=== PATIENT | female | born 1970 | race African-American/Black ===

== ENCOUNTER 2016-05-22 08:58 | Emergency (ER) | payer OTHER, MEDICAID ==
[~2016-05-22] VITALS: Ht 160 cm; Wt 115.0 kg
[~2016-05-22 08:58] MED LIST: 1-ME1LIQ PO; ALBU6.7H INH; AMIT50 PO; ATOR40TA49 PO; CHLO.12%30 SSP; CYCL-36 PO; DUONI NEB; HYDR-3533 PO; LISI20 PO; LORTA5 PO; MECL25CH PO; MOBI15TA PO; MONT10TA2 PO; PRED20 PO; REYA150C4 PO; RITO100 PO; TRUVTAB2 PO; VENTAER INH; ZITH250T PO
[2016-05-22 09:00] VITALS: BP 132/80; PULSE 80; RESP 20; O2SAT 99
[2016-05-22 09:10] VITALS: TEMP 97.9
[2016-05-22] MEDS ORDERED: LISI-515 PO (09:18)
[2016-05-22] MEDS ORDERED: ATAZ1TAB PO (09:18)
[2016-05-22] MEDS ORDERED: AMLO2.5T PO (09:18)
[2016-05-22] MEDS ORDERED: ATAZ150 PO (09:18)
[2016-05-22] MEDS ORDERED: ATOR40TA16 PO (09:18)
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
[2016-05-22] MEDS ORDERED: KETOROLAC TROMETHAMINE 60 MG/2 ML (IM) VIAL IM ONE (09:30)
[2016-05-22] MEDS ORDERED: ORPHENADRINE INJ 60 MG/2 ML AMP IM ONE (09:30)
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
[2016-05-22] MEDS ORDERED: ROBA750T PO (10:37)
[2016-05-22] MEDS ORDERED: DICL50TA PO (10:37)
== END 2016-05-22 11:05 | disposition home or self-care (01) ==
LOC: NEPB 08:58
DX: S29.012A Strain of muscle and tendon of back wall of thorax, initial encounter (principal); V43.52XA Car driver injured in collision with other type car in traffic accident, initial encounter
CPT/HCPCS: 71010; 72072; 96372; 99284; J1885; J2360

== ENCOUNTER 2016-08-05 15:59 | Emergency (ER) | payer MEDICAID, OTHER ==
[~2016-08-05] VITALS: Ht 160 cm; Wt 120.0 kg
[~2016-08-05 15:59] MED LIST changes: -1-ME1LIQ PO; -ALBU6.7H INH; -AMIT50 PO; +AMLO2.5T PO; +ATAZ150 PO; +ATAZ1TAB PO; +ATOR40TA16 PO; -ATOR40TA49 PO; -CHLO.12%30 SSP; -CYCL-36 PO; +DICL50TA PO; -DUONI NEB; -HYDR-3533 PO; +LISI-515 PO; -LISI20 PO; -LORTA5 PO; -MECL25CH PO; -MOBI15TA PO; -MONT10TA2 PO; -PRED20 PO; -REYA150C4 PO; -RITO100 PO; +ROBA750T PO; -TRUVTAB2 PO; -VENTAER INH; -ZITH250T PO
[2016-08-05 16:00] VITALS: BP 150/82; PULSE 96; RESP 20; TEMP 98.6; O2SAT 97
--- NOTE | 2016-08-05 18:43 | PD ---
HPI Chief Complaint: Chest Pain Time Seen by Provider: 18:43 Travel History International Travel<30 days: No Contact w/Intl Traveler<30days: No Traveled to known affect area: No History of Present Illness HPI 46-year-old female with history of HIV CD4 count greater than 700, diabetes, hypertension presents to emergency department for evaluation left upper quadrant pain. Patient states pain has been intermittent over the last 4 days. She's been having loose bowel movements. No hematochezia. No nausea or vomiting. No fever or chills. No chest pain or tightness. No difficulty breathing. No other symptoms to report. Of note, patient has brought chicken wings into the emergency department and is eating them when I walked into the room. PFSH Past Medical History Asthma: Yes Cardiovascular Problems: Yes High Cholesterol: Yes Diabetes: Yes Hypertension: Yes Immune Disorder: Yes (AIDS) Neurologic: Yes (PERIPHERAL NEUROPATHY) Immunizations Current: No : 7 Para: 3 Miscarriage: 2 : 2 Past Surgical History Section: Yes Social History Alcohol Use: No Tobacco Use: No Substance Use: No Allergies-Medications (Allergen,Severity, Reaction): Coded Allergies: Sulfa (Verified Allergy, Severe, HIVES, 08/05/16) Reported Meds & Prescriptions Reported Meds & Active Scripts Active Flagyl (Metronidazole) 500 Mg Tab 500 Mg PO TID 10 Days Cipro (Ciprofloxacin HCl) 500 Mg Tab 500 Mg PO BID 10 Days Reported Descovy (Emtricitabine-Tenofovir Alafenamide) 200-25 mg Tab 1 Tab PO DAILY Ferrous Sulfate 325 Mg Tab 325 Mg PO DAILY Metformin (Metformin HCl) 500 Mg Tab 500 Mg PO DAILY With a meal Evotaz (Atazanavir-Cobicistat) 300-150 Mg Tab 1 Tab PO DAILY Amlodipine (Amlodipine Besylate) 2.5 Mg Tab 2.5 Mg PO DAILY Lisinopril 20 Mg Tab 20 Mg PO DAILY Atorvastatin (Atorvastatin Calcium) 40 Mg Tab 40 Mg PO HS Review of Systems Except as stated in HPI: all other systems reviewed are Neg Physical Exam Narrative GENERAL: Obese female patient, in no acute distress. SKIN: Warm and dry. HEAD: Atraumatic. Normocephalic. EYES: Pupils equal and round. No scleral icterus. No injection or drainage. ENT: No nasal bleeding or discharge. Mucous membranes pink and moist. NECK: Trachea midline. No JVD. CARDIOVASCULAR: Elevated rate and rhythm. No murmur appreciated. RESPIRATORY: No accessory muscle use. Clear to auscultation. Breath sounds equal bilaterally. GASTROINTESTINAL: Abdomen soft, nondistended. Significant tenderness to palpation left lower quadrant. No rebound tenderness. No guarding. Hepatic and splenic margins not palpable. MUSCULOSKELETAL: No obvious deformities. No clubbing. No cyanosis. No edema. NEUROLOGICAL: Awake and alert. No obvious cranial nerve deficits. Motor grossly within normal limits. Normal speech. Data Data Last Documented VS Vital Signs Date Time Temp Pulse Resp B/P Pulse Ox O2 Delivery O2 Flow Rate FiO2 08/05/16 19:13 95 18 99 08/05/16 19:13 Room Air 08/05/16 16:00 98.6 150/82 Orders Electrocardiogram (08/05/16 ) Complete Blood Count With Diff (08/05/16 18:42) Comprehensive Metabolic Panel (08/05/16 18:42) Lipase (08/05/16 18:42) Prothrombin Time / Inr (Pt) (08/05/16 18:42) Act Partial Throm Time (Ptt) (08/05/16 18:42) Urinalysis - C+S If Indicated (08/05/16 18:42) Iv Access Insert/Monitor (08/05/16 18:42) Ecg Monitoring (08/05/16 18:42) Oximetry (08/05/16 18:42) Sodium Chloride 0.9% Flush (Ns Flush) (08/05/16 18:45) Magnesium (Mg) (08/05/16 18:42) Chest, Single Ap (08/05/16 18:42) Ct Abd/Pel W Iv Contrast(Rout) (08/05/16 ) Iohexol 350 Inj (Omnipaque 350 Inj) (08/05/16 20:51) Ciprofloxacin (Cipro) (08/05/16 21:45) Metronidazole (Flagyl) (08/05/16 21:45) Labs Laboratory Tests Test 08/05/16 08/05/16 19:10 19:20 White Blood Count 6.1 TH/MM3 Red Blood Count 4.57 MIL/MM3 Hemoglobin 12.1 GM/DL Hematocrit 37.7 % Mean Corpuscular Volume 82.5 FL Mean Corpuscular Hemoglobin 26.6 PG Mean Corpuscular Hemoglobin 32.2 % Concent Red Cell Distribution Width 15.1 % Platelet Count 223 TH/MM3 Mean Platelet Volume 8.6 FL Neutrophils (%) (Auto) 46.9 % Lymphocytes (%) (Auto) 42.9 % Monocytes (%) (Auto) 6.2 % Eosinophils (%) (Auto) 3.4 % Basophils (%) (Auto) 0.6 % Neutrophils # (Auto) 2.9 TH/MM3 Lymphocytes # (Auto) 2.6 TH/MM3 Monocytes # (Auto) 0.4 TH/MM3 Eosinophils # (Auto) 0.2 TH/MM3 Basophils # (Auto) 0.0 TH/MM3 CBC Comment DIFF FINAL Differential Comment Prothrombin Time 10.0 SEC Prothromb Time International 0.9 RATIO Ratio Activated Partial 30.4 SEC Thromboplast Time Sodium Level 137 MEQ/L Potassium Level 3.8 MEQ/L Chloride Level 101 MEQ/L Carbon Dioxide Level 28.4 MEQ/L Anion Gap 8 MEQ/L Blood Urea Nitrogen 10 MG/DL Creatinine 0.96 MG/DL Estimat Glomerular Filtration 75 ML/MIN Rate Random Glucose 173 MG/DL Calcium Level 8.6 MG/DL Magnesium Level 1.8 MG/DL Total Bilirubin 1.5 MG/DL Aspartate Amino Transf 15 U/L (AST/SGOT) Alanine Aminotransferase 32 U/L (ALT/SGPT) Alkaline Phosphatase 114 U/L Total Protein 8.0 GM/DL Albumin 3.5 GM/DL Lipase 171 U/L Urine Color YELLOW Urine Turbidity CLEAR Urine pH 6.0 Urine Specific [place] 1.014 Urine Protein 30 mg/dL Urine Glucose (UA) NEG mg/dL Urine Ketones NEG mg/dL Urine Occult Blood NEG Urine Nitrite NEG Urine Bilirubin NEG Urine Urobilinogen LESS THAN 2.0 MG/DL Urine Leukocyte Esterase NEG Urine RBC LESS THAN 1 /hpf Urine WBC 1 /hpf Urine Squamous Epithelial 3 /hpf Cells Microscopic Urinalysis Comment CULT NOT INDICATED MDM Medical Decision Making Medical Screen Exam Complete: Yes Emergency Medical Condition: Yes Medical Record Reviewed: Yes Differential Diagnosis Gastroenteritis versus colitis versus diverticulitis Narrative Course 46-year-old female presents for his department for evaluation left lower quadrant abdominal pain. Patient does have tenderness to palpation of the left lower quadrant. She otherwise appears well. Vital signs are stable. CBC and CMP are without acute concern. Urinalysis is with 30 per itching area, otherwise unremarkable. Chest x-ray is without acute disease. CT of the abdomen and pelvis shows focal area of pericolic inflammatory changes within the left mid descending colon rising possibility of mild acute diverticulitis. No pericolic abscess is noted. I discussed this with my attending physician Dr. Green who agrees that if the patient appears well with no significant laboratory concern, she can be discharged on oral antibiotics. Patient is given her first dose of Cipro and Flagyl here in the emergency department. I have counseled her on appropriate diet and care. She agrees to return immediately with any acute worsening symptoms. Diagnosis Primary Impression: LLQ abdominal pain Additional Impression: Acute diverticulitis Referrals: Distribution Sales Manager Primary Care Physician Patient Instructions: Diverticulitis (ED), Diverticulitis Diet (ED), General Instructions Additional Instructions: Follow diet as recommended Follow-up with a primary care provider Avoid acidic and abrasive foods Seek gastroenterology evaluation if symptoms persist Return immediately with any acute worsening of symptoms Med/Other Pt SpecificInfo: Prescription(s) given Scripts Metronidazole (Flagyl)500 Mg Oxa301 Mg PO TID 10 Days Ref 0 Prov:Ashley Burrell 08/05/16 Ciprofloxacin (Cipro)500 Mg Apj334 Mg PO BID 10 Days Ref 0 Prov:Ashley Burrell 08/05/16 Disposition: 01 DISCHARGE HOME Condition: Stable Ashley Burrell Aug 05, 2016 18:43
[2016-08-05] MEDS ORDERED: SODIUM CHLORIDE 0.9% FLUSH 10 ML FLUSH IV FLUSH PRN (18:45)
--- NOTE | 2016-08-05 19:06 | RADRPT ---
EXAM DATE/TIME: 08/05/2016 18:56 [facility] COMPARISON: CHEST SINGLE AP, May 22, 2016, 9:58. INDICATIONS : Chest pain. MEDICAL HISTORY : asthma. SURGICAL HISTORY : None. ENCOUNTER: Initial ACUITY: 4 - 6 days PAIN SCORE: 9/10 LOCATION: Left chest FINDINGS: A single view of the chest demonstrates the lungs to be symmetrically aerated without evidence of mas s, infiltrate or effusion. The cardiomediastinal contours are unremarkable. Osseous structures are intact. CONCLUSION: No acute disease. Shayne Dawson MD on August 05, 2016 at 19:05 Board Certified Radiologist. This report was verified electronically.
[2016-08-05 19:13] VITALS: RESP 18; O2SAT 96
[2016-08-05] MEDS ORDERED: FERR325T PO (19:19)
[2016-08-05] MEDS ORDERED: EMTR1TAB4 PO (19:19)
[2016-08-05] MEDS ORDERED: METF500T PO (19:19)
[2016-08-05 19:43] LABS: BLOOD, URINE NEG (NEG); COMMENT (UR) CULT NOT INDICATED; CULTURE IF INDICATED CULT NOT INDICATED; GLUCOSE,URINE NEG (NEG); KETONE, URINE NEG (NEG); NITRITE,URINE NEG (NEG); SQUAMOUS EPITHELIAL CELL URINE 3 /hpf (0-5); URINE COLOR YELLOW (YELLW/STRAW)
[2016-08-05 19:50] LABS: AUTOMATED NEUTROPHIL # 2.9 TH/MM3 (1.8-7.7); BASOPHIL % 0.6 % (0.0-2.0); EOSINOPHIL # 0.2 TH/MM3 (0-0.4); EOSINOPHIL % 3.4 % (0.0-4.0); HEMATOCRIT 37.7 % (35.0-46.0); HEMO FLAGS DIFF FINAL; LYMPH % 42.9 % (9.0-44.0); LYMPHOCYTE # 2.6 TH/MM3 (1.0-4.8); MEAN CELL VOLUME 82.5 FL (80.0-100.0); MEAN CORPUSCULAR HEMOGLOBIN 26.6 PG (27.0-34.0); MEAN CORPUSCULAR HGB CONC 32.2 % (32.0-36.0); MONO % 6.2 % (0.0-8.0); NEUT % 46.9 % (16.0-70.0); PLATELET COUNT 223 TH/MM3 (150-450); RED BLOOD COUNT 4.57 MIL/MM3 (4.00-5.30); RED CELL DISTRIBUTION WIDTH 15.1 % (11.6-17.2); WHITE BLOOD COUNT 6.1 TH/MM3 (4.0-11.0)
[2016-08-05 20:04] LABS: ANION GAP 8 MEQ/L (5-15); AST (GOT) 15 U/L (15-37); BICARBONATE 28.4 MEQ/L (21.0-32.0); BLOOD UREA NITROGEN 10 MG/DL (7-18); CHLORIDE 101 MEQ/L (98-107); GLOMERULAR FILTRATION RATE 75 ML/MIN (>89); MAGNESIUM 1.8 MG/DL (1.5-2.5); POTASSIUM 3.8 MEQ/L (3.5-5.1); SODIUM (NA) 137 MEQ/L (136-145)
[2016-08-05 20:07] LABS: ALKALINE PHOSPHATASE 114 U/L (45-117); ALT (GPT) 32 U/L (10-53); TOTAL BILIRUBIN ADULT 1.5 MG/DL (0.2-1.0)
[2016-08-05 20:22] LABS: APTT (PATIENT) 30.4 SEC (24.3-30.1); INTERNATIONAL NORMALIZED RATIO 0.9 RATIO
[2016-08-05] MEDS ORDERED: IOHEXOL 350 MG/ML 10 ML VIAL (for RAD DIAG) IV ONE (20:51)
--- NOTE | 2016-08-05 21:23 | RADRPT ---
EXAM DATE/TIME: 08/05/2016 20:34 [facility] COMPARISON: No previous studies available for comparison. INDICATIONS : Left sided abdominal pain for 4 days. IV CONTRAST: 98 cc Omnipaque 350 (iohexol) IV ORAL CONTRAST: No oral contrast ingested. RADIATION DOSE: 29.96 CTDIvol (mGy) MEDICAL HISTORY : Cardiovascular disease. Hypertension. Diabetes mellitus type 2.AIDS SURGICAL HISTORY : None. ENCOUNTER: Initial ACUITY: 4 - 6 days PAIN SCALE: 9/10 LOCATION: Left Abdomen/pelvis TECHNIQUE: Volumetric scanning of the abdomen and pelvis was performed. Using automated exposure control and ad justment of the mA and/or kV according to patient size, radiation dose was kept as low as reasonably achievable to obtain optimal diagnostic quality images. FINDINGS: LOWER LUNGS: The visualized lower lungs are clear. LIVER: Homogeneous density without lesion. There is no dilation of the biliary tree. No calcified gallston es. SPLEEN: Normal size without lesion. PANCREAS: Within normal limits. KIDNEYS: Normal in size and shape. There is no mass, stone or hydronephrosis. ADRENAL GLANDS: Within normal limits. VASCULAR: There is no aortic aneurysm. BOWEL/MESENTERY: Focal area of pericolic inflammatory changes are noted within the left mid descending colon raising t he possibility of mild acute diverticulitis. Clinical correlation is recommended. No pericolic absces s is noted. ABDOMINAL WALL: Within normal limits. RETROPERITONEUM: There is no lymphadenopathy. BLADDER: No wall thickening or mass. REPRODUCTIVE: Within normal limits. INGUINAL: There is no lymphadenopathy or hernia. MUSCULOSKELETAL: Within normal limits for patient age. CONCLUSION: Focal area of pericolic inflammatory changes are noted within the left mid descending colon raising the possibility of mild acute diverticulitis. Clinical correlation is recommended. No pericolic abscess is noted. Shayne Dawson MD on August 05, 2016 at 21:18 Board Certified Radiologist. This report was verified electronically.
[2016-08-05] MEDS ORDERED: CIPR-9 PO (21:35)
[2016-08-05] MEDS ORDERED: METR-1 PO (21:35)
[2016-08-05] MEDS ORDERED: CIPROFLOXACIN 500 MG TAB PO ONE (21:45)
[2016-08-05] MEDS ORDERED: metroNIDAZOLE 500 MG TAB PO ONE (21:45)
--- NOTE | 2016-08-06 13:26 | EKG ---
Date Performed: 08/05/2016 Time Performed: 16:22:01 PTAGE: 46 years EKG: Sinus rhythm POSSIBLE RIGHT VENTRICULAR CONDUCTION DELAY BORDERLINE ECG PREVIOUS TRACING : 11/02/2015 10.36 Compared to prior tracing no significant change DOCTOR: Keyon Bridges Interpretating Date/Time 08/06/2016 13:22:51
== END 2016-08-05 21:57 | disposition home or self-care (01) ==
LOC: NED 15:59 → NEPE 21:57
DX: K57.32 Diverticulitis of large intestine without perforation or abscess without bleeding (principal); R10.32 Left lower quadrant pain; R94.31 Abnormal electrocardiogram [ECG] [EKG]; E11.9 Type 2 diabetes mellitus without complications; I10 Essential (primary) hypertension; E78.00 Pure hypercholesterolemia, unspecified; Z21 Asymptomatic human immunodeficiency virus [HIV] infection status; Z79.84 Long term (current) use of oral hypoglycemic drugs; Z87.09 Personal history of other diseases of the respiratory system; Z86.79 Personal history of other diseases of the circulatory system; Z86.69 Personal history of other diseases of the nervous system and sense organs
CPT/HCPCS: 71010; 74177; 80053; 81001; 83690; 83735; 85025; 85610; 85730; 93005; 99284; Q9967

== ENCOUNTER 2016-09-03 15:24 | Observation (INO) | payer OTHER ==
[~2016-09-03] VITALS: Ht 160 cm; Wt 117.7 kg
[2016-09-03] VITALS (7 sets, daily range): BP systolic 124–131; BP diastolic 69–81; PULSE 78–134; RESP 18–28; TEMP 98.6–100.3; O2SAT 95–97
[~2016-09-03 15:24] MED LIST changes: -ATAZ150 PO; +CIPR-9 PO; -DICL50TA PO; +EMTR1TAB4 PO; +FERR325T PO; +METF500T PO; +METR-1 PO; -ROBA750T PO
--- NOTE | 2016-09-03 15:42 | PD ---
HPI Chief Complaint: Cold / Flu Symptoms Time Seen by Provider: 15:38 Travel History International Travel<30 days: No Contact w/Intl Traveler<30days: No Traveled to known affect area: No History of Present Illness HPI 46-year-old female presents the emergency department with 2 day history of increasing wheezing, shortness of breath, cough, and fever. Patient states she is HIV positive and currently treated with negative viral load per her M.D. Patient states she is asthmatic as well and uses a nebulizer at home but she has run out of her albuterol several days ago. Patient states he's been coughing up purulent sputum for the past 24 hours. Patient denies nausea, vomiting, sore throat, headache, ear pain, or chest pain. She is allergic to sulfa. PFSH Past Medical History Asthma: Yes Cardiovascular Problems: Yes High Cholesterol: Yes Diabetes: Yes Patient Takes Glucophage: Yes (metformin) Hypertension: Yes Immune Disorder: Yes (AIDS) Neurologic: Yes (PERIPHERAL NEUROPATHY) Respiratory: Yes Immunizations Current: No ?: Not : 7 Para: 3 Miscarriage: 2 : 2 Past Surgical History Section: Yes Social History Alcohol Use: No Tobacco Use: No Substance Use: No Allergies-Medications (Allergen,Severity, Reaction): Coded Allergies: Sulfa (Verified Allergy, Severe, HIVES, 08/05/16) Reported Meds & Prescriptions Reported Meds & Active Scripts Active Prednisone (48) 10 mg tab Dose Pack (Prednisone) 10 Mg Dspk 10 Mg PO DIRECTED Albuterol Neb (Albuterol Sulfate) 2.5 Mg/0.5 Ml Neb 2.5 Mg NEB QID NEB Note: The Albuterol Sulfate Inhalation Solution is concentrated and must be diluted. Read complete instructions carefully before using. Azithromycin 500 Mg Tab 500 Mg PO DAILY Flagyl (Metronidazole) 500 Mg Tab 500 Mg PO TID 10 Days Cipro (Ciprofloxacin HCl) 500 Mg Tab 500 Mg PO BID 10 Days Reported Descovy (Emtricitabine-Tenofovir Alafenamide) 200-25 mg Tab 1 Tab PO DAILY Ferrous Sulfate 325 Mg Tab 325 Mg PO DAILY Metformin (Metformin HCl) 500 Mg Tab 500 Mg PO DAILY With a meal Evotaz (Atazanavir-Cobicistat) 300-150 Mg Tab 1 Tab PO DAILY Amlodipine (Amlodipine Besylate) 2.5 Mg Tab 2.5 Mg PO DAILY Lisinopril 20 Mg Tab 20 Mg PO DAILY Atorvastatin (Atorvastatin Calcium) 40 Mg Tab 40 Mg PO HS Review of Systems Except as stated in HPI: all other systems reviewed are Neg General / Constitutional: Positive: Fever, Chills Eyes: No: Visual changes HENT: Positive: Rhinitis, Rhinorrhea, Congestion, No: Headaches, Neck Stiffness, Neck Pain, Gingival Bleeding, Dental Difficulties, Ear Discharge, Earache Cardiovascular: No: Chest Pain or Discomfort Respiratory: Positive: Cough, Shortness of Breath, Wheezing, No: Sneezing, Orthopnea, Hemoptysis, Stridor, Night Sweats, Pleuritic Pain, Other Gastrointestinal: No: Nausea, Vomiting, Diarrhea, Abdominal Pain Genitourinary: No: Dysuria Musculoskeletal: No: Pain Skin: No Rash Neurologic: No: Weakness Psychiatric: No: Depression Endocrine: No: Polydipsia Hematologic/Lymphatic: No: Easy Bruising Physical Exam Narrative GENERAL: Patient is in moderate respiratory distress. She has audible wheezing. She can speak in short sentences. SKIN: Warm and dry. Normal color. Normal turgor. No diaphoresis. HEAD: Atraumatic. Normocephalic. EYES: Pupils equal and round. No scleral icterus. No injection or drainage. ENT: No nasal bleeding or discharge. Mucous membranes pink and moist. TMs are clear bilaterally. Airway is patent. Pharynx appears unremarkable. No sinus tenderness to palpation. No postnasal drip. NECK: Trachea midline. No JVD. Supple nontender. CARDIOVASCULAR: Regular rate and rhythm. RESPIRATORY: Mild to moderate accessory muscle use. Moderate diffuse wheezing throughout to auscultation. Breath sounds equal bilaterally. GASTROINTESTINAL: Abdomen soft, non-tender, nondistended. Hepatic and splenic margins not palpable. MUSCULOSKELETAL: Extremities without clubbing, cyanosis, or edema. No obvious deformities. NEUROLOGICAL: Awake and alert. No obvious cranial nerve deficits. Motor grossly within normal limits. Five out of 5 muscle strength in the arms and legs. Normal speech. PSYCHIATRIC: Appropriate mood and affect; insight and judgment normal. Data Data Last Documented VS Vital Signs Date Time Temp Pulse Resp B/P Pulse Ox O2 Delivery O2 Flow Rate FiO2 09/03/16 15:27 100.3 134 28 131/81 95 Room Air Orders Basic Metabolic Panel (Bmp) (09/03/16 15:35) Comprehensive Metabolic Panel (09/03/16 15:35) Chest, Single Ap (09/03/16 15:35) Ecg Monitoring (09/03/16 15:35) Iv Access Insert/Monitor (09/03/16 15:35) Oximetry (09/03/16 15:35) Oxygen Administration (09/03/16 15:35) Methylprednisolone So Succ Inj (Solumedr (09/03/16 15:45) Albuterol-Ipratropium Neb (Duoneb Neb) (09/03/16 15:45) Sodium Chloride 0.9% Flush (Ns Flush) (09/03/16 15:45) Lactic Acid (09/03/16 15:35) Blood Culture (09/03/16 15:35) Influenzae A/B Antigen (09/03/16 15:37) Complete Blood Count With Diff (09/03/16 16:41) Azithromycin (Zithromax) (09/03/16 16:45) Albuterol-Ipratropium Neb (Duoneb Neb) (09/03/16 17:45) Oseltamivir (Tamiflu) (09/03/16 18:15) Labs Laboratory Tests Test 09/03/16 15:35 White Blood Count 5.7 TH/MM3 Red Blood Count 5.04 MIL/MM3 Hemoglobin 13.8 GM/DL Hematocrit 41.3 % Mean Corpuscular Volume 82.1 FL Mean Corpuscular Hemoglobin 27.4 PG Mean Corpuscular Hemoglobin 33.4 % Concent Red Cell Distribution Width 14.6 % Platelet Count 246 TH/MM3 Mean Platelet Volume 9.2 FL Neutrophils (%) (Auto) 39.3 % Lymphocytes (%) (Auto) 41.3 % Monocytes (%) (Auto) 11.6 % Eosinophils (%) (Auto) 7.3 % Basophils (%) (Auto) 0.5 % Neutrophils # (Auto) 2.3 TH/MM3 Lymphocytes # (Auto) 2.4 TH/MM3 Monocytes # (Auto) 0.7 TH/MM3 Eosinophils # (Auto) 0.4 TH/MM3 Basophils # (Auto) 0.0 TH/MM3 CBC Comment DIFF FINAL Differential Comment Sodium Level 138 MEQ/L Potassium Level 4.1 MEQ/L Chloride Level 101 MEQ/L Carbon Dioxide Level 28.4 MEQ/L Anion Gap 9 MEQ/L Blood Urea Nitrogen 8 MG/DL Creatinine 1.00 MG/DL Estimat Glomerular Filtration 72 ML/MIN Rate Random Glucose 115 MG/DL Lactic Acid Level 1.4 mmol/L Calcium Level 9.6 MG/DL Total Bilirubin 1.6 MG/DL Aspartate Amino Transf 26 U/L (AST/SGOT) Alanine Aminotransferase 40 U/L (ALT/SGPT) Alkaline Phosphatase 118 U/L Total Protein 8.1 GM/DL Albumin 3.5 GM/DL [facility] Medical Decision Making Medical Screen Exam Complete: Yes Emergency Medical Condition: Yes Medical Record Reviewed: Yes Differential Diagnosis Influenza. Bronchitis. Pneumonia. Wheezing. Asthma with acute exacerbation. History of HIV. Narrative Course Patient is in mild respiratory distress. Labs ordered including CBC, lactic acid, blood cultures 2. Chest x-ray is ordered. IV access is obtained patient is given 125 mg Solu-Medrol IV as well as duo nebs one every 15 minutes 3. Chest x-ray shows no acute process per radiologist. CBC is unremarkable CMP also unremarkable with a lactic acid of 1.4. Influenza is positive for influenza A. Patient is reassessed and continues to have tachycardia of 120. O2 sat is 93% on room air. Repeat DuoNeb is ordered. Patient discussed with , who recommends observation overnight due to the patient's vital signs and HIV history. Patient is given Tamiflu 75 mg by mouth. Diagnosis Primary Impression: Influenza A Additional Impressions: Asthma with acute exacerbation in adult HIV disease Tachycardia Admitting Information Admitting Physician Requests: Observation Patient Instructions: General Instructions Condition: Stable Jhoan Recio Sep 03, 2016 15:42 Jhoan Recio Sep 03, 2016 15:42
[2016-09-03] MEDS: RESP: ALBUTEROL 2.5 MG/IPRATROPIUM 0.5 MG NEB (SCH) INH (15:45)
[2016-09-03] MEDS ORDERED: SODIUM CHLORIDE 0.9% FLUSH 10 ML FLUSH IVF PRN (15:45)
[2016-09-03] MEDS ORDERED: methylPREDNISolone SOD SUCC 125 MG/2 ML VIAL IVP ONE (15:45)
--- NOTE | 2016-09-03 16:28 | RADRPT ---
EXAM DATE/TIME: 09/03/2016 15:55 [facility] COMPARISON: CHEST SINGLE AP, August 05, 2016, 18:56. INDICATIONS : Chest pain and shortness of breath. MEDICAL HISTORY : Asthma. Cardiovascular disease. Hypertension. Diabetes mellitus type 2. SURGICAL HISTORY : None. ENCOUNTER: Initial ACUITY: 1 week PAIN SCORE: 7/10 LOCATION: Bilateral chest FINDINGS: A single view of the chest demonstrates the lungs to be symmetrically aerated without evidence of mas s, infiltrate or effusion. The cardiomediastinal contours are unremarkable. Osseous structures are intact. CONCLUSION: No acute disease. Davis Mchugh MD on September 03, 2016 at 16:26 Board Certified Radiologist. This report was verified electronically.
[2016-09-03 16:32] LABS: ALKALINE PHOSPHATASE 118 U/L (45-117); TOTAL BILIRUBIN ADULT 1.6 MG/DL (0.2-1.0)
[2016-09-03 16:38] LABS: ALT (GPT) 40 U/L (10-53); ANION GAP 9 MEQ/L (5-15); AST (GOT) 26 U/L (15-37); BICARBONATE 28.4 MEQ/L (21.0-32.0); BLOOD UREA NITROGEN 8 MG/DL (7-18); CHLORIDE 101 MEQ/L (98-107); GLOMERULAR FILTRATION RATE 72 ML/MIN (>89); POTASSIUM 4.1 MEQ/L (3.5-5.1); SODIUM (NA) 138 MEQ/L (136-145)
[2016-09-03 16:52] LABS: AUTOMATED NEUTROPHIL # 2.3 TH/MM3 (1.8-7.7); BASOPHIL % 0.5 % (0.0-2.0); EOSINOPHIL # 0.4 TH/MM3 (0-0.4); EOSINOPHIL % 7.3 % (0.0-4.0); HEMATOCRIT 41.3 % (35.0-46.0); HEMO FLAGS DIFF FINAL; LYMPH % 41.3 % (9.0-44.0); LYMPHOCYTE # 2.4 TH/MM3 (1.0-4.8); MEAN CELL VOLUME 82.1 FL (80.0-100.0); MEAN CORPUSCULAR HEMOGLOBIN 27.4 PG (27.0-34.0); MEAN CORPUSCULAR HGB CONC 33.4 % (32.0-36.0); MONO % 11.6 % (0.0-8.0); NEUT % 39.3 % (16.0-70.0); PLATELET COUNT 246 TH/MM3 (150-450); RED BLOOD COUNT 5.04 MIL/MM3 (4.00-5.30); RED CELL DISTRIBUTION WIDTH 14.6 % (11.6-17.2); WHITE BLOOD COUNT 5.7 TH/MM3 (4.0-11.0)
[2016-09-03] MEDS: AZITHROMYCIN 250 MG TAB PO SCH (16:53)
[2016-09-03] MEDS ORDERED: PRED10PA2 PO (17:44)
[2016-09-03] MEDS ORDERED: ALBU.5I NEB (17:44)
[2016-09-03] MEDS ORDERED: AZIT500T2 PO (17:44)
[2016-09-03] MEDS ORDERED: RESP: ALBUTEROL 2.5 MG/IPRATROPIUM 0.5 MG NEB (SCH) NEB ONE (17:45)
[2016-09-03] MEDS ORDERED: OSELTAMIVIR PHOSPHATE 75 MG CAP PO ONE (18:15)
[2016-09-03] MEDS ORDERED: RESP: ALBUTEROL 2.5 MG/IPRATROPIUM 0.5 MG NEB (PRN) NEB (18:30)
[2016-09-03] MEDS ORDERED: NALOXONE HCL 0.4 MG/ML AMP IV PRN (18:30)
[2016-09-03] MEDS ORDERED: SODIUM CHLORIDE 0.9% FLUSH 10 ML FLUSH IV FLUSH PRN (18:30)
--- NOTE | 2016-09-03 18:43 | HHI.HP ---
[facility] Mello Helton MD Admission Diagnosis asthma exacerbation/influenza/hypoxia Diagnoses: Chief Complaint: SOB Travel History International Travel<30 Days: No Contact w/Intl Traveler <30 Da: No Traveled to Known Affected Are: No Sepsis Criteria SIRS Criteria (2 or more): Heart rate over 90, RR > 20 or PaCO2 < 32 Sepsis Criteria (SIRS+source): Infect source susp/known Criteria Outcome: Meets SIRS criteria, Meets sepsis criteria History of Present Illness Ms. Ascencio is a 46-year-old female with a known history of asthma, HIV positive, diabetes, hypertension and peripheral neuropathy who presented to emergency department with increasing shortness of breath, cough, fever, and associated wheezing. States that about 2 days ago she started to have fevers, chills, fatigue, malaise with increasing shortness of breath and cough. Reports small amount of phlegm yellowish in color that she is expectorating. Overall not feeling well, generalized pain. Denies chest pain, palpitations, headaches, dizziness. Denies n/v/d. Denies dysuria, abdominal pain and cramping, hematuria , hematochezia, hemoptysis. Review of Systems Except as stated in HPI: all other systems reviewed are Neg Past Family Social History Past Medical History Asthma HTN HIV positive Diabetes HLD Diverticulitis Past Surgical History Reported Medications Reported Meds & Active Scripts Active Flagyl (Metronidazole) 500 Mg Tab 500 Mg PO TID 10 Days Cipro (Ciprofloxacin HCl) 500 Mg Tab 500 Mg PO BID 10 Days Reported Descovy (Emtricitabine-Tenofovir Alafenamide) 200-25 mg Tab 1 Tab PO DAILY Ferrous Sulfate 325 Mg Tab 325 Mg PO DAILY Metformin (Metformin HCl) 500 Mg Tab 500 Mg PO DAILY With a meal Evotaz (Atazanavir-Cobicistat) 300-150 Mg Tab 1 Tab PO DAILY Amlodipine (Amlodipine Besylate) 2.5 Mg Tab 2.5 Mg PO DAILY Lisinopril 20 Mg Tab 20 Mg PO DAILY Atorvastatin (Atorvastatin Calcium) 40 Mg Tab 40 Mg PO HS Allergies: Coded Allergies: Sulfa (Verified Allergy, Severe, HIVES, 09/03/16) Active Ordered Medications Current Medications Medications (Trade) Dose Ordered Sig/Mackenzie Route Start Time Stop Time Status Last Admin (NS Flush) 2 ml UNSCH PRN IVF 09/03/16 15:45 (Zithromax) 500 mg DAILY PO 09/03/16 16:45 09/03/16 16:53 (Norvasc) 2.5 mg DAILY PO 09/04/16 09:00 (Lipitor) 40 mg HS PO 09/03/16 21:00 UNV (Ferrous Sulfate) 325 mg DAILY PO 09/04/16 09:00 UNV (Prinivil) 20 mg DAILY PO 09/04/16 09:00 UNV (Flagyl) 500 mg TID PO 09/04/16 09:00 UNV Non-Formulary Medication 1 tab DAILY PO 09/04/16 09:00 UNV Non-Formulary Medication 1 tab 1 tab DAILY PO 09/04/16 09:00 UNV (NS 1000 ml Inj) 1,000 ml @ 100 mls/hr Q10H IV 09/03/16 18:17 (NS Flush) 2 ml UNSCH PRN IV FLUSH 09/03/16 18:30 UNV (NS Flush) 2 ml BID IV FLUSH 09/03/16 21:00 UNV (Tylenol) 650 mg Q4H PRN PO 09/03/16 18:30 (Heparin Inj) 5,000 units Q8H SQ 09/03/16 18:30 UNV (Narcan Inj) 0.4 mg UNSCH PRN IV 09/03/16 18:30 UNV (SoluMEDROL INJ) 40 mg Q8HR IV PUSH 09/03/16 22:00 09/04/16 09:00 UNV (Pill Splitter) 1 ea UNSCH PRN OTHER 09/03/16 18:45 Family History Both sides of the family had diabetes, cancer and hypertension Social History Denies alcohol use Denies tobacco use Denies illicit drug use Physical Exam Vital Signs Vital Signs Date Time Temp Pulse Resp B/P Pulse Ox O2 Delivery O2 Flow Rate FiO2 09/03/16 15:27 100.3 134 28 131/81 95 Room Air Physical Exam GENERAL: This is a obese, well-developed patient, short of breath when talking and exertion. SKIN: No rashes, ecchymoses or lesions. Cool and dry. HEAD: Atraumatic. Normocephalic. No temporal or scalp tenderness. EYES: Pupils equal round and reactive. No scleral icterus. No injection or drainage. ENT: Nose without bleeding. Throat without erythema. Uvula midline. Airway patent. NECK: Trachea midline. No JVD or lymphadenopathy. CARDIOVASCULAR: Tachycardia rate and rhythm without murmurs, gallops, or rubs. RESPIRATORY: Wheezing bilaterally GASTROINTESTINAL: Abdomen soft, non-tender, nondistended. Bowel sounds active 4 MUSCULOSKELETAL: Extremities without clubbing, cyanosis, trace edema edema. NEUROLOGICAL: Awake and alert. Oriented to self, place, time. Motor and sensory grossly within normal limits. Normal speech. Laboratory Laboratory Tests Test 09/03/16 15:35 White Blood Count 5.7 Red Blood Count 5.04 Hemoglobin 13.8 Hematocrit 41.3 Mean Corpuscular Volume 82.1 Mean Corpuscular Hemoglobin 27.4 Mean Corpuscular Hemoglobin 33.4 Concent Red Cell Distribution Width 14.6 Platelet Count 246 Mean Platelet Volume 9.2 Neutrophils (%) (Auto) 39.3 Lymphocytes (%) (Auto) 41.3 Monocytes (%) (Auto) 11.6 Eosinophils (%) (Auto) 7.3 Basophils (%) (Auto) 0.5 Neutrophils # (Auto) 2.3 Lymphocytes # (Auto) 2.4 Monocytes # (Auto) 0.7 Eosinophils # (Auto) 0.4 Basophils # (Auto) 0.0 CBC Comment DIFF FINAL Differential Comment Sodium Level 138 Potassium Level 4.1 Chloride Level 101 Carbon Dioxide Level 28.4 Anion Gap 9 Blood Urea Nitrogen 8 Creatinine 1.00 Estimat Glomerular Filtration 72 Rate Random Glucose 115 Lactic Acid Level 1.4 Calcium Level 9.6 Total Bilirubin 1.6 Aspartate Amino Transf 26 (AST/SGOT) Alanine Aminotransferase 40 (ALT/SGPT) Alkaline Phosphatase 118 Total Protein 8.1 Albumin 3.5 Date/Time Procedure Status Source Growth 09/03/16 16:55 Influenza Types A,B Antigen (FAITH) - Final Complete Nasal Washing Positive For Flu A Antigen 09/03/16 15:40 Aerobic Blood Culture Received Blood Peripheral Pending 09/03/16 15:40 Anaerobic Blood Culture Received Blood Peripheral Pending Result Diagram: 09/03/16 1535 09/03/16 1535 Assessment and Plan Problem List: (1) Influenza A ICD Code: J10.1 Status: Acute (2) HIV disease ICD Code: B20 Status: Acute (3) Asthma with acute exacerbation in adult ICD Code: J45.901 Status: Acute (4) Tachycardia ICD Code: R00.0 Status: Acute (5) Acute diverticulitis ICD Code: K57.92 Status: Acute Assessment and Plan Ms. Ascencio is a 46-year-old female with a known history of asthma, HIV positive, diabetes, hypertension and peripheral neuropathy who presented to emergency department with increasing shortness of breath, cough, fever, and associated wheezing. Sepsis likely secondary to influenza SIRS - tachycardia, RR 28 Asthma with acute exacerbation - Chest x-ray without acute disease - Tamiflu 75mg BID - Duonebs scheduled, PRN - Solumedrol 40 mg every 8 hours - Azithromycin 500 mg daily - Repeat labs tomorrow, IVF for hydration - Monitor respiratory status HIV positive - Continue home HIV meds Diabetes mellitus: 1800 ADA diet. Accu-Chek before meals at bedtime. Hypertension: Continue lisinopril, Norvasc Dyslipidemia: Continue Lipitor. DVT prophylaxis heparin Written by Rohit Dejesus, acting as scribe for Dr. Pereira on 09/03/16 at 18:41. Code Status Full code Discussed Condition With Patient, nursing, ED attending Rohit Rock Sep 03, 2016 18:42 Kristian Pereira MD Sep 04, 2016 09:27
[2016-09-03] MEDS ORDERED: PILL SPLITTER OTHER PRN (18:45)
[2016-09-03] MEDS: HEPARIN SODIUM - SQ 10,000 UNITS/ML VIAL SQ SCH (19:12)
[2016-09-03] MEDS: SODIUM CHLOR 0.9% 1000 ML INJ 1,000 ML IV SCH ×2 (19:12→23:05)
[2016-09-03] MEDS: ACETAMINOPHEN 325 MG TAB PO PRN (19:13)
[2016-09-03] MEDS: RESP: ALBUTEROL 2.5 MG/IPRATROPIUM 0.5 MG NEB (SCH) NEB (19:29)
[2016-09-03] MEDS: ATORVASTATIN 40 MG TAB PO SCH (20:07)
[2016-09-03] MEDS: SODIUM CHLORIDE 0.9% FLUSH 10 ML FLUSH IV FLUSH SCH (21:00)
[2016-09-03] MEDS: OSELTAMIVIR PHOSPHATE 75 MG CAP PO SCH (21:00)
[2016-09-03] MEDS: methylPREDNISolone SOD SUCC 40 MG/1 ML VIAL IV PUSH SCH (23:03)
[2016-09-04] VITALS (8 sets, daily range): BP systolic 121–173; BP diastolic 77–91; PULSE 93–112; RESP 18–20; TEMP 98.1–98.9; O2SAT 95–97
[2016-09-04] MEDS ORDERED: DEXTROSE 50% IN WATER 50 ML VIAL(D50) IV PUSH PRN
[2016-09-04] MEDS ORDERED: GLUCAGON 1 MG/ML VIAL OTHER PRN
[2016-09-04] MEDS: HEPARIN SODIUM - SQ 10,000 UNITS/ML VIAL SQ SCH ×3 (02:00→17:51)
[2016-09-04 05:56] LABS: AUTOMATED NEUTROPHIL # 3.5 TH/MM3 (1.8-7.7); BASOPHIL % 0.2 % (0.0-2.0); EOSINOPHIL % 0.1 % (0.0-4.0); HEMATOCRIT 39.3 % (35.0-46.0); HEMO FLAGS DIFF FINAL; LYMPH % 21.4 % (9.0-44.0); MEAN CELL VOLUME 83.1 FL (80.0-100.0); MEAN CORPUSCULAR HGB CONC 32.5 % (32.0-36.0); MONO % 2.3 % (0.0-8.0); PLATELET COUNT 197 TH/MM3 (150-450); RED BLOOD COUNT 4.74 MIL/MM3 (4.00-5.30); RED CELL DISTRIBUTION WIDTH 14.4 % (11.6-17.2); WHITE BLOOD COUNT 4.7 TH/MM3 (4.0-11.0)
[2016-09-04] MEDS: methylPREDNISolone SOD SUCC 40 MG/1 ML VIAL IV PUSH SCH ×3 (06:00→21:40)
[2016-09-04 06:08] LABS: POTASSIUM 4.3 MEQ/L (3.5-5.1)
[2016-09-04] MEDS: INSULIN ASPART SUPPLEMENTAL SCALE SQ SCH ×5 (06:26→21:00)
[2016-09-04] MEDS: RESP: ALBUTEROL 2.5 MG/IPRATROPIUM 0.5 MG NEB (SCH) NEB ×4 (08:02→20:00)
[2016-09-04] MEDS: SODIUM CHLORIDE 0.9% FLUSH 10 ML FLUSH IV FLUSH SCH ×2 (08:32→21:40)
[2016-09-04] MEDS: FERROUS SULFATE 325 MG (65 MG ELEMENTAL IRON) TAB PO SCH (08:32)
[2016-09-04] MEDS: AZITHROMYCIN 250 MG TAB PO SCH (08:32)
[2016-09-04] MEDS: OSELTAMIVIR PHOSPHATE 75 MG CAP PO SCH ×2 (08:32→21:39)
[2016-09-04] MEDS: amLODIPine BESYLATE 5 MG TAB PO SCH (08:35)
[2016-09-04] MEDS: LISINOPRIL 20 MG TAB PO SCH (08:36)
[2016-09-04] MEDS ORDERED: LOSA50TA PO (08:38)
[2016-09-04] MEDS ORDERED: metroNIDAZOLE 500 MG TAB PO SCH (09:00)
[2016-09-04] MEDS ORDERED: EMTRICITABINE TENOFOVIR ALAFENAMIDE PO SCH (09:00)
[2016-09-04] MEDS ORDERED: PNEUMOCOCCAL POLYVALENT INJ 25 MCG/0.5 ML SYR IM ONE (09:00)
[2016-09-04] MEDS ORDERED: INFLUENZA VIRUS VACCINE (QUADRIVALENT) 0.5 ML SYR IM ONE (09:00)
[2016-09-04] MEDS ORDERED: [UNRECOGNIZED DRUG - OTHER] PO SCH (09:00)
--- NOTE | 2016-09-04 11:59 | HHI.PR ---
Subjective Remarks Feeling slightly better but she still getting short of breath and tachycardic when she walk with wheezing Blood sugar is high we'll upgrade sliding scale, and monitor, will place on basal insulin tonight needed Objective Vitals Vital Signs Date Time Temp Pulse Resp B/P Pulse Ox O2 Delivery O2 Flow Rate FiO2 09/04/16 08:15 93 09/04/16 08:10 95 21 09/04/16 07:39 98.9 93 18 121/77 97 09/04/16 04:57 98.2 98 20 128/ 97 09/03/16 23:26 78 09/03/16 22:20 98.6 109 20 131/69 96 09/03/16 20:12 96 Nasal Cannula 2 09/03/16 20:11 120 18 124/75 96 Nasal Cannula 2 09/03/16 20:08 18 09/03/16 19:28 97 Nasal Cannula 2.00 09/03/16 19:15 96 Nasal Cannula 2 09/03/16 19:14 96 Nasal Cannula 2 09/03/16 15:27 100.3 134 28 131/81 95 Room Air I/O 09/03/16 09/03/16 09/03/16 09/04/16 09/04/16 09/04/16 07:00 15:00 23:00 07:00 15:00 23:00 Intake Total 200 ml Balance 200 ml Intake Oral 200 ml Result Diagram: 09/04/16 0524 09/04/16 0524 Objective Remarks GENERAL: This is a obese, well-developed patient, short of breath when talking and exertion. SKIN: No rashes, ecchymoses or lesions. Cool and dry. HEAD: Atraumatic. Normocephalic. No temporal or scalp tenderness. EYES: Pupils equal round and reactive. No scleral icterus. No injection or drainage. ENT: Nose without bleeding. Throat without erythema. Uvula midline. Airway patent. NECK: Trachea midline. No JVD or lymphadenopathy. CARDIOVASCULAR: Tachycardia rate and rhythm without murmurs, gallops, or rubs. RESPIRATORY: Wheezing bilaterally GASTROINTESTINAL: Abdomen soft, non-tender, nondistended. Bowel sounds active 4 MUSCULOSKELETAL: Extremities without clubbing, cyanosis, trace edema edema. NEUROLOGICAL: Awake and alert. Oriented to self, place, time. Motor and sensory grossly within normal limits. Normal speech. A/P Problem List: (1) Influenza A ICD Code: J10.1 Status: Acute (2) HIV disease ICD Code: B20 Status: Acute (3) Asthma with acute exacerbation in adult ICD Code: J45.901 Status: Acute (4) Tachycardia ICD Code: R00.0 Status: Acute (5) Acute diverticulitis ICD Code: K57.92 Status: Acute Assessment and Plan Ms. Ascencio is a 46-year-old female with a known history of asthma, HIV positive, diabetes, hypertension and peripheral neuropathy who presented to emergency department with increasing shortness of breath, cough, fever, and associated wheezing. Sepsis likely secondary to influenza SIRS - tachycardia, RR 28 Asthma with acute exacerbation - Chest x-ray without acute disease - Tamiflu 75mg BID - Duonebs scheduled, PRN - Solumedrol 40 mg every 8 hours - Azithromycin 500 mg daily - Repeat labs tomorrow, IVF for hydration - Monitor respiratory status HIV positive - Continue home HIV meds Diabetes mellitus uncontrolled: 1800 ADA diet. Accu-Chek before meals at bedtime. Insulin sliding scale will increase to high level, start basal insulin tonight if needed Hypertension: Continue lisinopril, Norvasc Dyslipidemia: Continue Lipitor. DVT prophylaxis heparin Kristian Pereira MD Sep 04, 2016 11:59
[2016-09-04] MEDS: CALCIUM CARBONATE 500 MG CHEWABLE TAB PO PRN ×2 (13:23→21:52)
[2016-09-04] MEDS: SODIUM CHLOR 0.9% 1000 ML INJ 1,000 ML IV SCH (13:24)
[2016-09-04] MEDS: ATORVASTATIN 40 MG TAB PO SCH (21:39)
[2016-09-04] MEDS: ACETAMINOPHEN 325 MG TAB PO PRN (21:53)
[2016-09-05] MEDS: SODIUM CHLOR 0.9% 1000 ML INJ 1,000 ML IV SCH ×2 (00:17→10:17)
[2016-09-05 00:33] VITALS: BP 139/80; PULSE 99; RESP 20; TEMP 96; O2SAT 100
[2016-09-05] MEDS: HEPARIN SODIUM - SQ 10,000 UNITS/ML VIAL SQ SCH ×2 (01:07→09:44)
[2016-09-05 05:16] VITALS: BP 126/81; PULSE 72; RESP 20; TEMP 97.8; O2SAT 99
[2016-09-05] MEDS: methylPREDNISolone SOD SUCC 40 MG/1 ML VIAL IV PUSH SCH (05:21)
[2016-09-05] MEDS: INSULIN ASPART SUPPLEMENTAL SCALE SQ SCH (06:32)
[2016-09-05 08:35] VITALS: BP 154/84; PULSE 85; RESP 17; TEMP 98.3; O2SAT 94
[2016-09-05] MEDS: RESP: ALBUTEROL 2.5 MG/IPRATROPIUM 0.5 MG NEB (SCH) NEB ×2 (08:36→11:48)
[2016-09-05 08:37] VITALS: O2SAT 96
[2016-09-05] MEDS: amLODIPine BESYLATE 5 MG TAB PO SCH (09:00)
[2016-09-05] MEDS: LISINOPRIL 20 MG TAB PO SCH (09:00)
[2016-09-05] MEDS: OSELTAMIVIR PHOSPHATE 75 MG CAP PO SCH (09:00)
[2016-09-05] MEDS: FERROUS SULFATE 325 MG (65 MG ELEMENTAL IRON) TAB PO SCH (09:00)
[2016-09-05] MEDS: AZITHROMYCIN 250 MG TAB PO SCH (09:00)
[2016-09-05] MEDS: SODIUM CHLORIDE 0.9% FLUSH 10 ML FLUSH IV FLUSH SCH (09:00)
[2016-09-05] MEDS ORDERED: OSEL75 PO (11:33)
[2016-09-05] MEDS ORDERED: AZIT250T3 PO (11:33)
[2016-09-05] MEDS ORDERED: PRED5PAK PO (11:33)
[2016-09-05] MEDS ORDERED: ADVA250A INH (12:14)
[2016-09-05] MEDS ORDERED: NEBULIZER1 MI1 (12:22)
--- NOTE | 2016-09-05 14:30 | HHI.PR ---
Subjective Remarks Patient feels better and breathing better off oxygen, despite still wheezing, no fever or chills or chest tightness I discussed with her about asthma , she tells me she use albuterol nebulizer 2- 3 times a day and she gets asthma during the night about twice a week which is consistent with moderate to severe persistent asthma Patient is only on albuterol inhaler and nebulizer, I will discharge her on tapered prednisone dose, I will add Advair (mother dose inhaled steroid with L JESSICA ), and explained to the patient that she needs to follow up with the senior technical manager to titrate her asthma regimen Objective Vitals Vital Signs Date Time Temp Pulse Resp B/P Pulse Ox O2 Delivery O2 Flow Rate FiO2 09/05/16 08:37 96 21 09/05/16 08:35 98.3 85 17 154/84 94 09/05/16 08:00 97 Room Air 09/05/16 05:16 97.8 72 20 126/81 99 09/05/16 00:33 96.0 99 20 139/80 100 09/04/16 20:15 Room Air 21 09/04/16 20:00 98.1 105 20 137/85 95 09/04/16 18:30 98.3 106 18 143/91 95 09/04/16 17:51 151/80 09/04/16 16:48 98.8 112 18 173/89 97 I/O 09/04/16 09/04/16 09/04/16 09/05/16 09/05/16 09/05/16 07:00 15:00 23:00 07:00 15:00 23:00 Intake Total 200 ml 645 ml 1762 ml 726 ml Balance 200 ml 645 ml 1762 ml 726 ml Intake Oral 200 ml 1440 ml IV Total 645 ml 322 ml 726 ml # Voids 1 2 # Bowel Movements 1 0 Result Diagram: 09/04/1652309/04/16523 Objective Remarks GENERAL: This is a obese, well-developed patient, short of breath when talking and exertion. SKIN: No rashes, ecchymoses or lesions. Cool and dry. HEAD: Atraumatic. Normocephalic. No temporal or scalp tenderness. EYES: Pupils equal round and reactive. No scleral icterus. No injection or drainage. ENT: Nose without bleeding. Throat without erythema. Uvula midline. Airway patent. NECK: Trachea midline. No JVD or lymphadenopathy. CARDIOVASCULAR: Tachycardia rate and rhythm without murmurs, gallops, or rubs. RESPIRATORY: Wheezing bilaterally GASTROINTESTINAL: Abdomen soft, non-tender, nondistended. Bowel sounds active 4 MUSCULOSKELETAL: Extremities without clubbing, cyanosis, trace edema edema. NEUROLOGICAL: Awake and alert. Oriented to self, place, time. Motor and sensory grossly within normal limits. Normal speech. A/P Problem List: (1) Influenza A ICD Code: J10.1 Status: Acute (2) HIV disease ICD Code: B20 Status: Acute (3) Asthma with acute exacerbation in adult ICD Code: J45.901 Status: Acute (4) Tachycardia ICD Code: R00.0 Status: Acute (5) Acute diverticulitis ICD Code: K57.92 Status: Acute Assessment and Plan Ms. Ascencio is a 46-year-old female with a known history of asthma, HIV positive, diabetes, hypertension and peripheral neuropathy who presented to emergency department with increasing shortness of breath, cough, fever, and associated wheezing. Sepsis likely secondary to influenza SIRS - tachycardia, RR 28 Asthma with acute exacerbation - Chest x-ray without acute disease - Tamiflu 75mg BID - Duonebs scheduled, PRN - Solumedrol 40 mg every 8 hours - Azithromycin 500 mg daily - Repeat labs tomorrow, IVF for hydration - Monitor respiratory status HIV positive - Continue home HIV meds Diabetes mellitus uncontrolled: 1800 ADA diet. Accu-Chek before meals at bedtime. Insulin sliding scale will increase to high level, start basal insulin tonight if needed Hypertension: Continue lisinopril, Norvasc Dyslipidemia: Continue Lipitor. DVT prophylaxis heparin 09/05:I discussed with her about asthma , she tells me she use albuterol nebulizer 2-3 times a day and she gets asthma during the night about twice a week which is consistent with moderate to severe persistent asthma Patient is only on albuterol inhaler and nebulizer, I will discharge her on tapered prednisone dose, I will add Advair (mother dose inhaled steroid with L JESSICA ), and explained to the patient that she needs to follow up with the senior technical manager to titrate her asthma regimen Discharge patient to home Condition on discharge: Improved Regular Diet as tolerated Ad Torrie activity Rx written: Advair, taper prednisone, patient requested nebulizer Follow-up with primary care physician and senior technical manager within 1 week Kristian Pereira MD Sep 05, 2016 14:30
== END 2016-09-05 13:06 | disposition home or self-care (01) ==
LOC: NEPC 15:24 → NEDA 18:15 → INTOOBSV 18:15 → NEPHCDU 22:09 → N04A 09-04 18:20
PROVIDERS: ADMIT Hospitalist; ATTEND Hospitalist
DX: A41.9 Sepsis, unspecified organism (principal); J10.1 Influenza due to other identified influenza virus with other respiratory manifestations; B20 Human immunodeficiency virus [HIV] disease; J45.901 Unspecified asthma with (acute) exacerbation; R00.0 Tachycardia, unspecified; K57.92 Diverticulitis of intestine, part unspecified, without perforation or abscess without bleeding; E11.65 Type 2 diabetes mellitus with hyperglycemia; E11.42 Type 2 diabetes mellitus with diabetic polyneuropathy; I10 Essential (primary) hypertension; E78.5 Hyperlipidemia, unspecified; E78.00 Pure hypercholesterolemia, unspecified; Z88.2 Allergy status to sulfonamides; Z79.84 Long term (current) use of oral hypoglycemic drugs
CPT/HCPCS: 71010; 80048; 80053; 82948; 83605; 85025; 87040; 87804; 94640; 94664; 96374; 99285; G0378; J1644; J1815; J2920; J2930; J7030

== ENCOUNTER 2017-01-21 16:25 | Observation (INO) | payer OTHER ==
[~2017-01-21] VITALS: Ht 160 cm; Wt 130.0 kg
[~2017-01-21 16:25] MED LIST changes: +ADVA250A INH; +AZIT250T3 PO; -LISI-515 PO; +LOSA50TA PO; +NEBULIZER1 MI1; +OSEL75 PO; +PRED5PAK PO
[2017-01-21 16:27] VITALS: BP 143/82; PULSE 99; RESP 24; TEMP 98.2; O2SAT 100
[2017-01-21] MEDS ORDERED: methylPREDNISolone SOD SUCC 125 MG/2 ML VIAL IV PUSH ONE (17:00)
[2017-01-21] MEDS ORDERED: RESP: BUDESONIDE 0.5 MG/2 ML NEB NEB ONE (17:00)
[2017-01-21] MEDS ORDERED: oxyCODONE/ACETAMINOPHEN 5 MG/325 MG TAB PO ONE (17:00)
[2017-01-21] MEDS ORDERED: SODIUM CHLORIDE 0.9% FLUSH 10 ML FLUSH IVF PRN (17:00)
[2017-01-21] MEDS: RESP: ALBUTEROL 2.5 MG/IPRATROPIUM 0.5 MG NEB (SCH) INH ×4 (17:30→19:42)
[2017-01-21 17:31] VITALS: BP 158/77; PULSE 88; RESP 15; O2SAT 99
[2017-01-21 17:35] LABS: AUTOMATED NEUTROPHIL # 3.6 TH/MM3 (1.8-7.7); BASOPHIL % 0.4 % (0.0-2.0); EOSINOPHIL # 0.2 TH/MM3 (0-0.4); EOSINOPHIL % 2.4 % (0.0-4.0); HEMO FLAGS DIFF FINAL; LYMPH % 44.6 % (9.0-44.0); LYMPHOCYTE # 3.6 TH/MM3 (1.0-4.8); MEAN CELL VOLUME 85.7 FL (80.0-100.0); MEAN CORPUSCULAR HEMOGLOBIN 27.8 PG (27.0-34.0); MEAN CORPUSCULAR HGB CONC 32.4 % (32.0-36.0); NEUT % 44.6 % (16.0-70.0); PLATELET COUNT 247 TH/MM3 (150-450); RED BLOOD COUNT 4.43 MIL/MM3 (4.00-5.30); RED CELL DISTRIBUTION WIDTH 12.9 % (11.6-17.2); WHITE BLOOD COUNT 8.1 TH/MM3 (4.0-11.0)
--- NOTE | 2017-01-21 17:39 | RADRPT ---
EXAM DATE/TIME: 01/21/2017 17:22 [facility] COMPARISON: CHEST SINGLE AP, September 03, 2016, 15:55. INDICATIONS : Shortness of breath. MEDICAL HISTORY : Asthma. Cardiovascular disease. Hypertension. Diabetes mellitus type 2. SURGICAL HISTORY : None. ENCOUNTER: Initial ACUITY: 1 day PAIN SCORE: 0/10 LOCATION: Bilateral chest FINDINGS: A single view of the chest demonstrates the lungs to be symmetrically aerated without evidence of mas s, infiltrate or effusion. The cardiomediastinal contours are unremarkable. Osseous structures are intact. CONCLUSION: 1. No acute cardiopulmonary findings. Max Mckeon MD on January 21, 2017 at 17:37 Board Certified Radiologist. This report was verified electronically.
[2017-01-21] MEDS ORDERED: SITA25 PO (17:43)
[2017-01-21 17:55] LABS: ALT (GPT) 28 U/L (10-53); ANION GAP 6 MEQ/L (5-15); AST (GOT) 14 U/L (15-37); BICARBONATE 30.9 MEQ/L (21.0-32.0); BLOOD UREA NITROGEN 11 MG/DL (7-18); CHLORIDE 103 MEQ/L (98-107); GLOMERULAR FILTRATION RATE 61 ML/MIN (>89); POTASSIUM 3.8 MEQ/L (3.5-5.1); SODIUM (NA) 140 MEQ/L (136-145)
[2017-01-21 17:58] LABS: ALKALINE PHOSPHATASE 128 U/L (45-117); TOTAL BILIRUBIN ADULT 1.5 MG/DL (0.2-1.0)
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
--- NOTE | 2017-01-21 19:25 | PD ---
Physical Exam Date Seen by Provider: Jan 21, 2017 Time Seen by Provider: 18:30 Narrative I, Dr. Montana, have reviewed the advance practice practitioner's documentation and am in agreement, met with the patient face to face, made the diagnosis, and the medical decision making was done by me. *My assessment and Findings: Patient seen and evaluated with nurse practitioner , here with shortness of breath, wheezing, left flank pains and left upper quadrant abdominal pains. She has been coughing as well but denies any fevers or other symptoms. She is tender in the left upper quadrant on palpation. Possible costochondritis versus pneumonia versus gastritis versus pancreatitis versus renal colic. Initial chest x-ray did not show any signs of acute pulmonary processes. Patient was given Solu-Medrol and several nebulizers, reports some improvement but needed additional nebulizers on reevaluation at 7 PM. At this point, additional lab work was sent and if patient is not improved , plan would be to admit her for further treatment. Nurse practitioner is continuing care after 7 PM. Data Data Last Documented VS Vital Signs Date Time Temp Pulse Resp B/P (MAP) Pulse Ox O2 Delivery O2 Flow Rate FiO2 01/21/17 17:31 88 15 158/77 (104) 99 Room Air 01/21/17 16:27 98.2 Orders Orders Electrocardiogram (01/21/17 16:55) Complete Blood Count With Diff (01/21/17 16:55) Comprehensive Metabolic Panel (01/21/17 16:55) Chest, Single Ap (01/21/17 16:55) Ecg Monitoring (01/21/17 16:55) Iv Access Insert/Monitor (01/21/17 16:55) Oximetry (01/21/17 16:55) Oxygen Administration (01/21/17 16:55) Methylprednisolone So Succ Inj (Solumedr (01/21/17 17:00) Albuterol-Ipratropium Neb (Duoneb Neb) (01/21/17 17:00) Sodium Chloride 0.9% Flush (Ns Flush) (01/21/17 17:00) Budesonide Neb (Pulmicort Respule Neb) (01/21/17 17:00) Oxycodone-Acetamin 5-325 Mg (Percocet (01/21/17 17:00) Lipase (01/21/17 19:20) Urinalysis - C+S If Indicated (01/21/17 19:20) Albuterol-Ipratropium Neb (Duoneb Neb) (01/21/17 19:30) Labs Laboratory Tests Test 01/21/17 17:25 White Blood Count 8.1 TH/MM3 Red Blood Count 4.43 MIL/MM3 Hemoglobin 12.3 GM/DL Hematocrit 38.0 % Mean Corpuscular Volume 85.7 FL Mean Corpuscular Hemoglobin 27.8 PG Mean Corpuscular Hemoglobin Concent 32.4 % Red Cell Distribution Width 12.9 % Platelet Count 247 TH/MM3 Mean Platelet Volume 8.9 FL Neutrophils (%) (Auto) 44.6 % Lymphocytes (%) (Auto) 44.6 % Monocytes (%) (Auto) 8.0 % Eosinophils (%) (Auto) 2.4 % Basophils (%) (Auto) 0.4 % Neutrophils # (Auto) 3.6 TH/MM3 Lymphocytes # (Auto) 3.6 TH/MM3 Monocytes # (Auto) 0.7 TH/MM3 Eosinophils # (Auto) 0.2 TH/MM3 Basophils # (Auto) 0.0 TH/MM3 CBC Comment DIFF FINAL Differential Comment Blood Urea Nitrogen 11 MG/DL Creatinine 1.16 MG/DL Random Glucose 78 MG/DL Total Protein 7.9 GM/DL Albumin 3.4 GM/DL Calcium Level 9.2 MG/DL Alkaline Phosphatase 128 U/L Aspartate Amino Transf (AST/SGOT) 14 U/L Alanine Aminotransferase (ALT/SGPT) 28 U/L Total Bilirubin 1.5 MG/DL Sodium Level 140 MEQ/L Potassium Level 3.8 MEQ/L Chloride Level 103 MEQ/L Carbon Dioxide Level 30.9 MEQ/L Anion Gap 6 MEQ/L Estimat Glomerular Filtration Rate 61 ML/MIN [facility] Medical Record Reviewed: Yes Supervised Visit with MOUSTAPHA: Yes Diagnosis Primary Impression: Asthma with acute exacerbation in adult Additional Impression: Abdominal pain, left upper quadrant Condition: Stable Mahi Montana MD Jan 21, 2017 19:25
[2017-01-21 19:37] VITALS: BP 145/84; PULSE 112; RESP 20; O2SAT 97
[2017-01-21 19:59] LABS: BLOOD, URINE NEG (NEG); GLUCOSE,URINE NEG (NEG); KETONE, URINE NEG (NEG); NITRITE,URINE NEG (NEG); PH, URINE 5.5 (5.0-8.5); SQUAMOUS EPITHELIAL CELL URINE <1 /hpf (0-5); URINE COLOR LIGHT-YELLOW (YELLW/STRAW)
[2017-01-21 20:01] LABS: COMMENT (UR) CULT NOT INDICATED; CULTURE IF INDICATED CULT NOT INDICATED
[2017-01-21] MEDS ORDERED: SODIUM CHLOR 0.9% 1000 ML INJ 1,000 ML IV ONE (20:45)
[2017-01-21] MEDS ORDERED: MORPHINE SULFATE 4 MG/ML INJ IV PUSH ONE (21:30)
[2017-01-21] MEDS ORDERED: ONDANSETRON HCL 4 MG/2 ML VIAL IV PUSH ONE (21:30)
[2017-01-21] MEDS ORDERED: RESP: ALBUTEROL 2.5 MG/IPRATROPIUM 0.5 MG NEB (PRN) NEB (21:45)
[2017-01-21] MEDS ORDERED: SODIUM CHLORIDE 0.9% FLUSH 10 ML FLUSH IV FLUSH PRN (21:45)
[2017-01-21] MEDS ORDERED: NALOXONE HCL 0.4 MG/ML AMP IV PUSH PRN (21:45)
[2017-01-21] MEDS: RESP: ALBUTEROL 2.5 MG/IPRATROPIUM 0.5 MG NEB (SCH) NEB (22:36)
[2017-01-22 00:25] VITALS: BP 149/83; PULSE 125; RESP 24; O2SAT 98
[2017-01-22] MEDS ORDERED: AZITHROMYCIN INJ 500 MG VIAL ONE (02:04)
[2017-01-22] MEDS ORDERED: ENOXAPARIN SODIUM 150 MG/ML SYRINGE ONE (02:04)
--- NOTE | 2017-01-22 03:52 | HHI.HP ---
HPI Service [facility] Primary Care Physician Mello Helton MD Admission Diagnosis ASTHMA EXACERBATION Diagnoses: Chief Complaint: shortness of breath Travel History International Travel<30 Days: No Contact w/Intl Traveler <30 Da: No Traveled to Known Affected Are: No History of Present Illness Patient seen on 01/21/2017 at 23:40. Late entry due to Hospital computer issues. 46 y/o female with a history of asthma, HIV (CD4 count 539), DM, HTN, and HLD presented to the ED with complaints of shortness of breath. She states she began to have troubles breathing 5 days ago and each day she continued to worsen. She does use nebulizers at home and proair but has had no relief. She states two weeks ago she stopped taking her advair inhaler because she says the powder makes her gag and throw up. She states she has been coughing and has thick yellow sputum, and associated left sided stabbing rib pain when she coughs. She states the pain medication given did help the pain for a short time. Denies any chest pain, fever, chills, nausea or vomiting. Review of Systems Except as stated in HPI: all other systems reviewed are Neg Past Family Social History Past Medical History Asthma HIV, last CD4 539 3 months ago DM HLD HTN Past Surgical History C section 2013 Allergies: Coded Allergies: Sulfa (Sulfonamide Antibiotics) (Unverified Allergy, Severe, HIVES, ) Family History Dad: from a PE Mom: DM, HTN Social History Tobacco use: Denies Alcohol use: Denies Illicit drug use: Denies Physical Exam Vital Signs Vital Signs Date Time Temp Pulse Resp B/P (MAP) Pulse Ox O2 Delivery O2 Flow Rate FiO2 01/21/17 19:37 112 20 145/84 (104) 97 Room Air 01/21/17 17:31 88 15 158/77 (104) 99 Room Air 01/21/17 17:31 99 Room Air 01/21/17 16:27 98.2 99 24 143/82 (102) 100 Room Air Physical Exam GENERAL: This is a well-nourished, obese patient, who appears short of breath SKIN: No rashes, ecchymoses or lesions. Cool and dry. HEAD: Atraumatic. Normocephalic. EYES: Pupils equal round and reactive. ENT: Nose without bleeding, purulent drainage or septal hematoma. Airway patent. NECK: Trachea midline. No JVD CARDIOVASCULAR: Tachycardic rate and regular rhythm without murmurs, gallops, or rubs. RESPIRATORY: Tight breath sounds throughout. Scattered wheezing. GASTROINTESTINAL: Abdomen soft, non-tender, nondistended. MUSCULOSKELETAL: Extremities without clubbing, cyanosis, or edema. No joint tenderness, effusion, or edema noted. No calf tenderness. NEUROLOGICAL: Awake and alert. Motor and sensory grossly within normal limits. Normal speech. Laboratory Laboratory Tests Test 01/21/17 17:25 01/21/17 19:35 White Blood Count 8.1 Red Blood Count 4.43 Hemoglobin 12.3 Hematocrit 38.0 Mean Corpuscular Volume 85.7 Mean Corpuscular Hemoglobin 27.8 Mean Corpuscular Hemoglobin Concent 32.4 Red Cell Distribution Width 12.9 Platelet Count 247 Mean Platelet Volume 8.9 Neutrophils (%) (Auto) 44.6 Lymphocytes (%) (Auto) 44.6 Monocytes (%) (Auto) 8.0 Eosinophils (%) (Auto) 2.4 Basophils (%) (Auto) 0.4 Neutrophils # (Auto) 3.6 Lymphocytes # (Auto) 3.6 Monocytes # (Auto) 0.7 Eosinophils # (Auto) 0.2 Basophils # (Auto) 0.0 CBC Comment DIFF FINAL Differential Comment Blood Urea Nitrogen 11 Creatinine 1.16 Random Glucose 78 Total Protein 7.9 Albumin 3.4 Calcium Level 9.2 Alkaline Phosphatase 128 Aspartate Amino Transf (AST/SGOT) 14 Alanine Aminotransferase (ALT/SGPT) 28 Total Bilirubin 1.5 Sodium Level 140 Potassium Level 3.8 Chloride Level 103 Carbon Dioxide Level 30.9 Anion Gap 6 Estimat Glomerular Filtration Rate 61 Urine Color LIGHT-YELLOW Urine Turbidity CLEAR Urine pH 5.5 Urine Specific [place] 1.009 Urine Protein NEG Urine Glucose (UA) NEG Urine Ketones NEG Urine Occult Blood NEG Urine Nitrite NEG Urine Bilirubin NEG Urine Urobilinogen LESS THAN 2.0 Urine Leukocyte Esterase NEG Urine RBC LESS THAN 1 Urine WBC LESS THAN 1 Urine Squamous Epithelial Cells <1 Microscopic Urinalysis Comment CULT NOT INDICATED Lipase 235 Result Diagram: 01/21/17 1725 01/21/17 1725 Imaging Last Impressions Chest X-Ray 01/21/17 1655 Signed Impressions: Service Date/Time: January 17:22 - CONCLUSION: 1. No acute cardiopulmonary findings. MD Hayde Townsend VTE Risk Assessment Caprinyaniv VTE Risk Assessment: Mod/High Risk (score >= 2) Caprini Risk Assessment Model Point Value = 1 Point Value = 2 Point Value = 3 Point Value = 5 Age 41-60 Minor surgery BMI > 25 kg/m2 Swollen legs Varicose veins or History of unexplained or recurrent spontaneous Oral contraceptives or hormone replacement Sepsis (< 1 month) Serious lung disease, including pneumonia (< 1 month) Abnormal pulmonary function Acute myocardial infarction Congestive heart failure (< 1 month) History of inflammatory bowel disease Medical patient at bed rest Age 61-74 Arthroscopic surgery Major open surgery (> 45 min) Laparoscopic surgery (> 45 min) Malignancy Confined to bed (> 72 hours) Immobilizing plaster cast Central venous access Age >= 75 History of VTE Family history of VTE Factor V Leiden Prothrombin [id number] Lupus anticoagulant Anticardiolipin antibodies Elevated serum homocysteine Heparin-induced thrombocytopenia Other congenital or acquired thrombophilia Stroke (< 1 month) Elective arthroplasty Hip, pelvis, or leg fracture Acute spinal cord injury (< 1 month) Prophylaxis Regimen Total Risk Factor Score Risk Level Prophylaxis Regimen 0-1 Low Early ambulation 2 Moderate Order ONE of the following: *Sequential Compression Device (SCD) *Heparin 5000 units SQ BID 3-4 Higher Order ONE of the following medications: *Heparin 5000 units SQ TID *Enoxaparin/Lovenox 40 mg SQ daily (WT < 150 kg, CrCl > 30 mL/min) *Enoxaparin/Lovenox 30 mg SQ daily (WT < 150 kg, CrCl > 10-29 mL/min) *Enoxaparin/Lovenox 30 mg SQ BID (WT < 150 kg, CrCl > 30 mL/min) AND/OR *Sequential Compression Device (SCD) 5 or more Highest Order ONE of the following medications: *Heparin 5000 units SQ TID (Preferred with Epidurals) *Enoxaparin/Lovenox 40 mg SQ daily (WT < 150 kg, CrCl > 30 mL/min) *Enoxaparin/Lovenox 30 mg SQ daily (WT < 150 kg, CrCl > 10-29 mL/min) *Enoxaparin/Lovenox 30 mg SQ BID (WT < 150 kg, CrCl > 30 mL/min) AND *Sequential Compression Device (SCD) Assessment and Plan Problem List: (1) Asthma with acute exacerbation in adult ICD Code: J45.901 - Unspecified asthma with (acute) exacerbation Status: Acute (2) HIV disease ICD Code: B20 - Human immunodeficiency virus [HIV] disease Status: Chronic (3) HTN (hypertension) ICD Code: I10 - Essential (primary) hypertension (4) Diabetes ICD Code: E11.9 - Type 2 diabetes mellitus without complications Assessment and Plan 46 y/o female with a history of asthma, HIV (CD4 count 539), DM, HTN, and HLD presented to the ED with complaints of shortness of breath. Asthma with acute exacerbation Chest x ray reviewed and unremarkable -Change to Atrovent scheduled and PRN due to tachycardia -Solumedrol IV -Azithromycin and Rocephin IV -Consult pulmonology, patient can not tolerate taking advair at home Lateral left flank pain, worse with coughing, r/o PE -D dimer order -VQ scan ordered -Pain management with IV morphine -Lovenox full dose given x 1 DM, chronic -Hold home PO medication -Accu checks AC/HS with SSI HTN, chronic: Resume home medications, and monitor vitals HIV, chronic: Resume home medications DVT prophylaxis: Lovenox, scds GI prophylaxis: Protonix Discussed Condition With Patient and RN Problem Qualifiers (1) Asthma with acute exacerbation in adult: Qualified Codes: J45.901 - Unspecified asthma with (acute) exacerbation Liliana John Jan 22, 2017 03:51
[2017-01-22] MEDS ORDERED: DEXTROSE 50% IN WATER 50 ML VIAL(D50) IV PRN (04:00)
[2017-01-22] MEDS ORDERED: GLUCAGON 1 MG/ML VIAL OTHER PRN (04:00)
[2017-01-22] MEDS: RESP: ALBUTEROL 2.5 MG/IPRATROPIUM 0.5 MG NEB (SCH) NEB (05:40)
[2017-01-22] MEDS: methylPREDNISolone SOD SUCC 40 MG/1 ML VIAL IV PUSH SCH ×4 (06:10→18:08)
[2017-01-22 06:15] VITALS: BP 159/108; PULSE 118; RESP 24; O2SAT 97
[2017-01-22] MEDS ORDERED: RESP: IPRATROPIUM 0.5 MG/2.5 ML NEB NEB PRN (06:30)
[2017-01-22] MEDS: INSULIN ASPART SUPPLEMENTAL SCALE SQ SCH ×3 (08:50→18:08)
[2017-01-22] MEDS ORDERED: EVOTAZ PO SCH (09:00)
[2017-01-22] MEDS ORDERED: DESCOVY PO SCH (09:00)
[2017-01-22] MEDS ORDERED: PANTOPRAZOLE SOD 40 MG DELAYED RELEASE TAB PO SCH (09:00)
[2017-01-22] MEDS ORDERED: SODIUM CHLORIDE 0.9% FLUSH 10 ML FLUSH IV FLUSH SCH (09:00)
[2017-01-22] MEDS ORDERED: LOSARTAN 50 MG TAB PO SCH (09:00)
[2017-01-22 09:05] LABS: BICARBONATE 21.8 MEQ/L (21.0-32.0); POTASSIUM 4.5 MEQ/L (3.5-5.1)
[2017-01-22 09:14] LABS: AUTOMATED NEUTROPHIL # 9.4 TH/MM3 (1.8-7.7); BASOPHIL % 0.1 % (0.0-2.0); HEMATOCRIT 39.1 % (35.0-46.0); HEMO FLAGS DIFF FINAL; LYMPH % 9.2 % (9.0-44.0); MEAN CELL VOLUME 87.4 FL (80.0-100.0); MEAN CORPUSCULAR HEMOGLOBIN 28.6 PG (27.0-34.0); MEAN CORPUSCULAR HGB CONC 32.7 % (32.0-36.0); MONO % 1.2 % (0.0-8.0); NEUT % 89.5 % (16.0-70.0); PLATELET COUNT 226 TH/MM3 (150-450); RED BLOOD COUNT 4.48 MIL/MM3 (4.00-5.30); RED CELL DISTRIBUTION WIDTH 13.2 % (11.6-17.2); WHITE BLOOD COUNT 10.5 TH/MM3 (4.0-11.0)
[2017-01-22] MEDS: MORPHINE SULFATE 4 MG/ML INJ IV PUSH PRN ×2 (09:19→14:06)
--- NOTE | 2017-01-22 10:52 | RADRPT ---
EXAM DATE/TIME: 01/22/2017 09:31 [place] COMPARISON: CHEST SINGLE AP, January 21, 2017, 17:22. INDICATIONS : Shortness of breath with left rib pain for one day. DOSE: 8.5 mCi Tc99m MAA IV 2.4 mCi Tc99m DTPA aerosol MEDICAL HISTORY : None SURGICAL HISTORY : section. ENCOUNTER: Initial ACUITY: 1 day PAIN SCALE: 5/10 LOCATION: Left chest TECHNIQUE: Following five minutes of tidal breathing of DTPA aerosol, planar images of the lungs were performed in eight projections. The patient was then injected with MAA, and eight-view perfusion scan was perf ormed. FINDINGS: There is a homogeneous pattern of aerosol delivery to the periphery of both lungs. No focal ventilat ory defects are seen. The perfusion lung scan demonstrates a homogenous pattern of uptake in both lungs. No segmental or s ubsegmental defects are seen. CONCLUSION: Low probability scan for pulmonary embolism Ish Galvez MD on January 22, 2017 at 10:49 Board Certified Radiologist. This report was verified electronically.
[2017-01-22 11:02] VITALS: BP 136/89; PULSE 103; RESP 16; O2SAT 98
[2017-01-22] MEDS: RESP: IPRATROPIUM 0.5 MG/2.5 ML NEB NEB SCH ×2 (11:23→16:17)
--- NOTE | 2017-01-22 12:10 | EKG ---
Date Performed: 01/21/2017 Time Performed: 17:39:02 PTAGE: 46 years EKG: Sinus rhythm NORMAL ECG Since PREVIOUS TRACING , no significant change noted PREVIOUS TRACIN08/05/2016 16.22 DOCTOR: Peña Barr Interpretating Date/Time 01/22/2017 12:08:39
[2017-01-22 14:44] VITALS: BP 180/92; PULSE 107; RESP 16; O2SAT 97
[2017-01-22 14:47] VITALS: BP 180/92
[2017-01-22 14:54] VITALS: BP 141/71; PULSE 104; RESP 18; TEMP 98.7; O2SAT 94
--- NOTE | 2017-01-22 16:43 | HHI.DS ---
Discharge Summary Admission Date Jan 21, 2017 at 21:43 Discharge Date: Jan 22, 2017 Admitting Diagnosis ASTHMA EXACERBATION (1) Asthma with acute exacerbation in adult ICD Code: J45.901 - Unspecified asthma with (acute) exacerbation Status: Acute (2) HIV disease ICD Code: B20 - Human immunodeficiency virus [HIV] disease Status: Chronic (3) HTN (hypertension) ICD Code: I10 - Essential (primary) hypertension (4) Diabetes ICD Code: E11.9 - Type 2 diabetes mellitus without complications Procedures See below Brief History - From Admission Patient seen on 01/21/2017 at 23:40. Late entry due to Hospital computer issues. 46 y/o female with a history of asthma, HIV (CD4 count 539), DM, HTN, and HLD presented to the ED with complaints of shortness of breath. She states she began to have troubles breathing 5 days ago and each day she continued to worsen. She does use nebulizers at home and ProAir but has had no relief. She states two weeks ago she stopped taking her Advair inhaler because she says the powder makes her gag and throw up. She states she has been coughing and has thick yellow sputum, and associated left sided stabbing rib pain when she coughs. She states the pain medication given did help the pain for a short time. Denies any chest pain, fever, chills, nausea or vomiting. CBC/BMP: 01/22/17 0816 01/22/17 0816 Significant Findings Laboratory Tests Test 01/21/17 17:25 01/21/17 19:35 01/22/17 06:38 01/22/17 08:16 Lymphocytes (%) (Auto) 44.6 % (9.0-44.0) Creatinine 1.16 MG/DL (0.50-1.00) 1.07 MG/DL (0.50-1.00) Alkaline Phosphatase 128 U/L (45-117) Aspartate Amino Transf (AST/SGOT) 14 U/L (15-37) Total Bilirubin 1.5 MG/DL (0.2-1.0) Estimat Glomerular Filtration Rate 61 ML/MIN (>89) 67 ML/MIN (>89) D-Dimer Quantitative (PE/DVT) 1.46 MG/L FEU (0.00-0.50) Neutrophils (%) (Auto) 89.5 % (16.0-70.0) Neutrophils # (Auto) 9.4 TH/MM3 (1.8-7.7) Random Glucose 272 MG/DL (74-106) Imaging Last Impressions Lung Scan-VQ Nuclear Medicine 01/22/17 0000 Signed Impressions: Service Date/Time: Sunday, January 22, 2017 09:31 - CONCLUSION: Low probability scan for pulmonary embolism Ish Galvez MD Chest X-Ray 01/21/17 1655 Signed Impressions: Service Date/Time: January 17:22 - CONCLUSION: 1. No acute cardiopulmonary findings. Max Mckeon MD PE at Discharge GENERAL: This is a well-nourished, obese patient, in nad. SKIN: No rashes, ecchymoses or lesions. Cool and dry. HEAD: Atraumatic. Normocephalic. EYES: Pupils equal round and reactive. ENT: Nose without bleeding, purulent drainage or septal hematoma. Airway patent. NECK: Trachea midline. No JVD CARDIOVASCULAR: Tachycardic rate and regular rhythm without murmurs, gallops, or rubs. RESPIRATORY: Tight breath sounds throughout. Scattered wheezing. GASTROINTESTINAL: Abdomen soft, non-tender, nondistended. Left rid cage area lateral tenderness. MUSCULOSKELETAL: Extremities without clubbing, cyanosis, or edema. No joint tenderness, effusion, or edema noted. No calf tenderness. NEUROLOGICAL: Awake and alert. Motor and sensory grossly within normal limits. Normal speech. Hospital Course 46 y/o female with a history of asthma, HIV (CD4 count 539), DM, HTN, and HLD presented to the ED with complaints of shortness of breath. Thought to be in asthma with acute exacerbation. Given Azithromycin and Rocephin IV. Chest x ray obtained and unremarkable given solumedrol IV. D-dimer elevated, VQ scan done and low probability for PE. Chronic medical problems include diabetes, hypertension and HIV and were all managed. Patient hypertensive at times during hospitalization, was monitored and given home BP medications. A chest PA and lateral ordered to rule out rib fracture. Pt Condition on Discharge: Stable Discharge Disposition: Discharge Home Discharge Time: <= 30 minutes Discharge Instructions DIET: Follow Instructions for: Heart Healthy Diet Activities you can perform: Regular-No Restrictions Follow up Referrals: PCP Follow-up - 1 Week Continued Medications: Atazanavir-Cobicistat (Evotaz) 300-150 Mg Tab 1 TAB PO DAILY for Mgmt Viral Infection, #30 TAB 0 Refills Atorvastatin (Atorvastatin) 40 Mg Tab 40 MG PO HS for Cholesterol Management, #30 TAB 0 Refills Emtricitabine-Tenofovir Alafenamide (Descovy) 200-25 mg Tab 1 TAB PO DAILY for Mgmt Viral Infection, #30 TAB 0 Refills Fluticasone-Salmeterol Inh (Advair Diskus Inh) 250-50 Mcg/Blist Aer 1 PUFF INH BID for uncontrolled asthma, #1 INHALER 0 Refills Rinse mouth after use. Losartan (Losartan) 50 Mg Tab 50 MG PO DAILY for Blood Pressure Management, #30 TAB 0 Refills Metformin (Metformin) 500 Mg Tab 500 MG PO DAILY for Blood Sugar Management, #30 TAB 0 Refills With a meal Sitagliptin (Januvia) 25 Mg Tab 25 MG PO DAILY for Blood Sugar Management, #30 TAB 0 Refills Becka Banks Jan 22, 2017 16:43 Kristian Pereira MD Jan 22, 2017 19:12
[2017-01-22] MEDS ORDERED: CIPR-9 PO (17:51)
[2017-01-22] MEDS ORDERED: METR-1 PO (17:51)
--- NOTE | 2017-01-22 19:05 | RADRPT ---
EXAM DATE/TIME: 01/22/2017 18:48 [facility] COMPARISON: CHEST SINGLE AP, January 21, 2017, 17:22. INDICATIONS : Shortness of breath and "hard area left lower chest area", with no trauma. MEDICAL HISTORY : asthma SURGICAL HISTORY : None. ENCOUNTER: Subsequent ACUITY: 4 - 6 days PAIN SCORE: 6/10 LOCATION: Left lower /mid chest FINDINGS: Trace atelectasis now seen right lung base. No pleural effusion or pneumothorax demonstrated. Heart size stable, within normal limits. CONCLUSION: Trace right base atelectasis developing. Ish Marcelino MD on January 22, 2017 at 19:03 Board Certified Radiologist. This report was verified electronically.
[2017-01-22] MEDS ORDERED: ATORVASTATIN 40 MG TAB PO SCH (21:00)
[2017-01-22] MEDS ORDERED: BUDESONIDE-FORMOTEROL 160/4.5 MCG INHALER INH SCH (21:00)
--- NOTE | 2017-01-24 06:24 | MB ---
cc: Bonita EARL M.D., MOHAMMADREZA MD Corrected Copy: 01/25/17 DATE OF CONSULTATION: 01/22/2017 REASON FOR CONSULTATION: Asthma and dyspnea. HISTORY OF PRESENT ILLNESS: This is a 46-year-old overweight lady with a history of asthma and HIV disease, also has had hypertension, diabetes and hyperlipidemia. The patient was seen in the ER for shortness of breath, wheezing and thus was started on IV steroids, nebulized bronchodilators and admitted. The patient initially was on oxygen but presently he is off of it and maintaining a saturation of over 94%. She is coughing up some whitish-yellow mucus and denies fevers, chills, but has had some chest tightness and pain. There is no history of nausea, vomiting or aspiration. PAST HISTORY: 1. Asthma. 2. Chronic bronchitis. 3. History of HIV disease. 4. History of diabetes mellitus. PAST SURGERIES . HABITS The patient does not smoke. No history of alcohol use. Denies illicit drug use. ALLERGIES Sulfa drugs. FAMILY HISTORY Father had a history of pulmonary emboli and mother has diabetes and hypertension. REVIEW OF SYSTEMS The patient bowel habits. The patient denies smoking. No history of alcohol and denies be that he has drug use. PHYSICAL EXAMINATION This is a moderately obese, young -[place] female who is alert, pale and mildly dyspneic. VITAL SIGNS: Blood pressure 150/80, pulse 110, respiratory rate 22, temperature 98.2. HEENT: Normocephalic. Pupils are reactive. Tongue is moist. Nasal mucosa erythematous. Throat is injected. NECK: Supple. No venous distension, trachea midline. CHEST: Equal movements with scattered wheezes throughout both lung reinoso. Prolonged expirations with no crackles on either side. HEART: The heart sounds are irregular, S1-S2, no murmur. No S3. ABDOMEN: Soft, benign, no masses, no organomegaly, no tenderness. Bowel sounds are active. EXTREMITIES: No clubbing or edema. Normal reflexes. There were no gross motor deficits. Cranial nerves grossly intact. RECTAL: Deferred. SKIN: No lesions noted. ASSESSMENT 1. Asthmatic bronchitis with dyspnea. 2. History of HIV disease 3. Hypertension 4. Diabetes mellitus 5. Basilar atelectasis. PLAN The patient is already on antibiotic coverage and Solu-Medrol. She could be switched to oral Ceftin 500 mg b.i.d. for 10 days, also switch her to prednisone 20 mg b.i.d. and taper over the next [address] her on Symbicort 160 x 4.5 two puffs twice daily. Presently does not require oxygen since her saturation is over 93% on room air. The patient was advised to lose weight. She is a candidate for a C-PAP mask and will need a sleep study as an outpatient. Sputum was sent for Gram stain and culture. A Ventolin HFA inhaler 2 puffs q.i.d. p.r.n. was added. I will follow up as-needed. Thank you for this consultation. MD JIM Frank/HILARIA /11:52 PM /9:10 AM
== END 2017-01-22 19:57 | disposition home or self-care (01) ==
LOC: NEPE 16:25 → UNDOADMIN 21:03 → NEDA 21:03 → NEDH 01-22 03:47 → N06A 01-22 15:05
PROVIDERS: ADMIT Internal Medicine; ATTEND Internal Medicine
DX: J45.901 Unspecified asthma with (acute) exacerbation (principal); I10 Essential (primary) hypertension; E11.9 Type 2 diabetes mellitus without complications; E78.00 Pure hypercholesterolemia, unspecified; R10.12 Left upper quadrant pain; B20 Human immunodeficiency virus [HIV] disease
CPT/HCPCS: 71010; 71020; 78582; 80048; 80053; 81001; 82948; 83690; 85025; 85379; 93005; 94640; 94664; 96361; 96372; 96374; 96375; 96376; 99285; A9540; A9567; G0378; J0456; J0696; J1650; J1815; J2270; J2405; J2920; J2930; J7030; J7626; J7644

== ENCOUNTER 2017-08-12 19:29 | Observation (INO) | payer OTHER ==
[~2017-08-12] VITALS: Ht 177.8 cm; Wt 125.0 kg
[~2017-08-12 19:29] MED LIST changes: -AMLO2.5T PO; -AZIT250T3 PO; -FERR325T PO; -OSEL75 PO; -PRED5PAK PO; +SITA25 PO
[2017-08-12 20:33] VITALS: BP 155/74; PULSE 87; RESP 28; TEMP 98.6; O2SAT 100
--- NOTE | 2017-08-12 21:13 | PD ---
HPI Chief Complaint: Chest Pain Time Seen by Provider: 21:00 Travel History International Travel<30 days: No Contact w/Intl Traveler<30days: No Traveled to known affect area: No History of Present Illness HPI This is a 39-year-old female with history of obesity, diabetes, HIV on antiretroviral therapy, asthma, hypertension, peripheral neuropathy, presents for evaluation of chest pain. Symptoms started 1 week ago. She describes it as a substernal chest pain which is sharp and constant and radiates into the right scapula and back. Pain is worse with inspiration and movement. She denies acute shortness of breath, cough or congestion, nausea or vomiting, abdominal pain, flank pain, dysuria, fevers or chills. No personal history of coronary artery disease. No history of PE or DVT. She has no other complaints at this time. PFSH Past Medical History Asthma: Yes Blood Disorders: Yes (HIV) Anxiety: No Depression: No Heart Rhythm Problems: No Cancer: No Cardiovascular Problems: Yes (htn episodes) High Cholesterol: Yes Chemotherapy: No Chest Pain: No Congestive Heart Failure: No COPD: No Diabetes: Yes Patient Takes Glucophage: No Endocrine: No Gastrointestinal Disorders: No Genitourinary: No Hypertension: Yes Implanted Vascular Access Dvce: No Musculoskeletal: No Neurologic: Yes (peripheral neuopathy) Psychiatric: No Reproductive: No Respiratory: Yes (asthma) Immunizations Current: No Radiation Therapy: No Sleep Apnea: No Thyroid Disease: No Tetanus Vaccination: Unknown Influenza Vaccination: No ?: Unknown : 7 Para: 3 Miscarriage: 2 : 2 Past Surgical History Section: Yes Other Surgery: Yes (two ceseareans) Social History Alcohol Use: No Tobacco Use: No Substance Use: No Allergies-Medications (Allergen,Severity, Reaction): Coded Allergies: Sulfa (Sulfonamide Antibiotics) (Unverified Allergy, Severe, HIVES, 08/12/17 ) Reported Meds & Prescriptions Reported Meds & Active Scripts Active Azithromycin 250 Mg Tab 250 Mg PO DAILY 4 Days Nebulizer 1 Mis Mis 1 Ea .ROUTE DIRECTED Advair Diskus Inh (Fluticasone-Salmeterol Inh) 250-50 Mcg/Blist Aer 1 Puff INH BID Rinse mouth after use. Reported Amlodipine (Amlodipine Besylate) 10 Mg Tab 20 Mg PO DAILY Iron (Ferrous Sulfate) 18 Mg Tab Januvia (Sitagliptin Phosphate) 25 Mg Tab 25 Mg PO DAILY Losartan (Losartan Potassium) 50 Mg Tab 50 Mg PO DAILY Descovy (Emtricitabine-Tenofovir Alafenamide) 200-25 mg Tab 1 Tab PO DAILY Metformin (Metformin HCl) 500 Mg Tab 500 Mg PO DAILY With a meal Evotaz (Atazanavir-Cobicistat) 300-150 Mg Tab 1 Tab PO DAILY Atorvastatin (Atorvastatin Calcium) 40 Mg Tab 40 Mg PO HS Review of Systems Except as stated in HPI: all other systems reviewed are Neg Physical Exam Narrative GENERAL: Well-developed well-nourished female in no acute distress. SKIN: Warm and dry. HEAD: Atraumatic. Normocephalic. EYES: Pupils equal and round. No scleral icterus. No injection or drainage. ENT: No nasal bleeding or discharge. Mucous membranes pink and moist. NECK: Trachea midline. No JVD. CARDIOVASCULAR: Regular rate and rhythm. No murmur appreciated. RESPIRATORY: No accessory muscle use. Clear to auscultation. Breath sounds equal bilaterally. GASTROINTESTINAL: Abdomen soft, non-tender, nondistended. Hepatic and splenic margins not palpable. MUSCULOSKELETAL: No obvious deformities. There is no lower extremity edema. NEUROLOGICAL: Awake and alert. No obvious cranial nerve deficits. Motor grossly within normal limits. Normal speech. PSYCHIATRIC: Appropriate mood and affect; insight and judgment normal. Data Data Last Documented VS Vital Signs Date Time Temp Pulse Resp B/P (MAP) Pulse Ox O2 Delivery O2 Flow Rate FiO2 08/12/17 21:51 90 16 132/65 (87) 99 Nasal Cannula 2.00 08/12/17 20:33 98.6 Orders Orders Electrocardiogram (08/12/17 21:08) Ckmb (Isoenzyme) Profile (08/12/17 21:08) Complete Blood Count With Diff (08/12/17 21:08) Comprehensive Metabolic Panel (08/12/17 21:08) Magnesium (Mg) (08/12/17 21:08) Prothrombin Time / Inr (Pt) (08/12/17 21:08) Act Partial Throm Time (Ptt) (08/12/17 21:08) Troponin I (08/12/17 21:08) Ecg Monitoring (08/12/17 21:08) Bilateral Bp Monitoring (08/12/17 21:08) Iv Access Insert/Monitor (08/12/17 21:08) Oximetry (4/5/18 21:08) Oxygen Administration (08/12/17 21:08) Aspirin (Aspirin) (08/12/17 21:15) Sodium Chloride 0.9% Flush (Ns Flush) (08/12/17 21:15) Nitroglycerin Sl (Nitrostat Sl) (08/12/17 21:15) Ct Pulmonary Angiogram (08/12/17 21:08) Chest, Pa & Lat (08/12/17 21:08) Lipase (08/12/17 21:08) Ed Urine Pregnancytest Poc (08/12/17 21:08) Morphine Inj (Morphine Inj) (08/12/17 22:00) CKMB (08/12/17 21:15) CKMB% (08/12/17 21:15) Iohexol 350 Inj (Omnipaque 350 Inj) (08/12/17 22:32) Azithromycin Inj (Zithromax Inj) (08/12/17 23:00) Admit Order (Ed Use Only) (08/12/17 22:51) Activity Bed Rest With Brp (08/12/17 22:51) Vital Signs (Adult) Q4H (08/12/17 22:51) Cardiac Rhythm .As Directed (08/12/17 22:51) Notify Dr: Other .PRN (08/12/17 22:51) Notify Parameters (08/12/17 22:51) Resp Oxygen Nasal Cannula (08/12/17 ) Ckmb (Isoenzyme) Profile (08/13/17 00:15) Troponin I (08/13/17 00:15) Electrocardiogram (08/13/17 00:15) Electrocardiogram (08/13/17 03:15) ^ Obtain (08/12/17 22:51) Sodium Chloride 0.9% Flush (Ns Flush) (08/12/17 23:00) Sodium Chloride 0.9% Flush (Ns Flush) (08/13/17 09:00) Npo After Midnight W/ Po Meds (08/13/17 Breakfast) Labs Laboratory Tests Test 08/12/17 21:15 White Blood Count 7.2 TH/MM3 Red Blood Count 4.62 MIL/MM3 Hemoglobin 13.0 GM/DL Hematocrit 39.0 % Mean Corpuscular Volume 84.5 FL Mean Corpuscular Hemoglobin 28.2 PG Mean Corpuscular Hemoglobin Concent 33.4 % Red Cell Distribution Width 14.5 % Platelet Count 262 TH/MM3 Mean Platelet Volume 8.7 FL Neutrophils (%) (Auto) 45.2 % Lymphocytes (%) (Auto) 42.9 % Monocytes (%) (Auto) 6.9 % Eosinophils (%) (Auto) 4.4 % Basophils (%) (Auto) 0.6 % Neutrophils # (Auto) 3.3 TH/MM3 Lymphocytes # (Auto) 3.1 TH/MM3 Monocytes # (Auto) 0.5 TH/MM3 Eosinophils # (Auto) 0.3 TH/MM3 Basophils # (Auto) 0.0 TH/MM3 CBC Comment DIFF FINAL Differential Comment Prothrombin Time 9.7 SEC Prothromb Time International Ratio 1.0 RATIO Activated Partial Thromboplast Time 26.7 SEC Blood Urea Nitrogen 14 MG/DL Creatinine 1.05 MG/DL Random Glucose 184 MG/DL Total Protein 8.2 GM/DL Albumin 3.6 GM/DL Calcium Level 8.6 MG/DL Magnesium Level 1.8 MG/DL Alkaline Phosphatase 141 U/L Aspartate Amino Transf (AST/SGOT) 22 U/L Alanine Aminotransferase (ALT/SGPT) 33 U/L Total Bilirubin 0.9 MG/DL Sodium Level 139 MEQ/L Potassium Level 4.1 MEQ/L Chloride Level 104 MEQ/L Carbon Dioxide Level 27.2 MEQ/L Anion Gap 8 MEQ/L Estimat Glomerular Filtration Rate 68 ML/MIN Total Creatine Kinase 293 U/L Creatine Kinase MB 1.6 NG/ML Creatine Kinase MB % 0.5 % Troponin I LESS THAN 0.02 NG/ML Lipase 194 U/L [facility] Medical Decision Making Medical Screen Exam Complete: Yes Emergency Medical Condition: Yes Medical Record Reviewed: Yes Differential Diagnosis Pneumothorax, pericarditis, myocarditis, acute coronary syndrome, aortic dissection, pulmonary embolism, pleurisy, costochondritis Narrative Course The patient was placed on ECG monitoring pulse oximetry. 12-lead EKG was obtained. The patient was given nitroglycerin, aspirin. Lab work, chest x-ray , CT pulmonary angiogram ordered. Lab work and imaging studies have been reviewed. CT pulmonary angiogram is negative for pulmonary embolus. It reveals a mild patchy airspace disease in the left lower lobe most characteristic of pneumonia. She has no clinical symptoms of pneumonia and she is not hypoxic, febrile, tachycardic. She will be started on azithromycin given the imaging findings however this is likely unrelated to her pain. Given her multiple risk factors for cardiac disease, she will be admitted into the chest pain center for serial cardiac enzymes and rule out purposes. She is agreeable. Diagnosis Primary Impression: Chest pain Additional Impression: Pneumonia Admitting Information Admitting Physician Requests: Observation Scripts Azithromycin (Azithromycin) 250 Mg Tab 250 MG PO DAILY for Infection for 4 Days, #4 TAB 0 Refills Prov: Jermaine Lopez MD 08/12/17 Claudio Davila Aug 12, 2017 21:13
[2017-08-12] MEDS ORDERED: ASPIRIN 325 MG TAB PO ONE (21:15)
[2017-08-12] MEDS ORDERED: SODIUM CHLORIDE 0.9% FLUSH 10 ML FLUSH IVF PRN (21:15)
[2017-08-12 21:28] VITALS: BP_SYST 164; BP_SYST 184; BP_DIAS 114; BP_DIAS 73; PULSE 90; RESP 18; O2SAT 98
[2017-08-12 21:36] LABS: AUTOMATED NEUTROPHIL # 3.3 TH/MM3 (1.8-7.7); BASOPHIL % 0.6 % (0.0-2.0); EOSINOPHIL # 0.3 TH/MM3 (0-0.4); EOSINOPHIL % 4.4 % (0.0-4.0); LYMPH % 42.9 % (9.0-44.0); LYMPHOCYTE # 3.1 TH/MM3 (1.0-4.8); MEAN CELL VOLUME 84.5 FL (80.0-100.0); MEAN CORPUSCULAR HEMOGLOBIN 28.2 PG (27.0-34.0); MEAN CORPUSCULAR HGB CONC 33.4 % (32.0-36.0); MEAN PLATELET VOLUME 8.7 FL (7.0-11.0); MONO % 6.9 % (0.0-8.0); MONOCYTE # 0.5 TH/MM3 (0-0.9); NEUT % 45.2 % (16.0-70.0); PLATELET COUNT 262 TH/MM3 (150-450); RED BLOOD COUNT 4.62 MIL/MM3 (4.00-5.30); RED CELL DISTRIBUTION WIDTH 14.5 % (11.6-17.2); WHITE BLOOD COUNT 7.2 TH/MM3 (4.0-11.0)
[2017-08-12 21:43] VITALS: BP 146/71; PULSE 78; RESP 16; O2SAT 100
[2017-08-12] MEDS: NITROGLYCERIN 0.4 MG SL 25 TABS/BTL SL SCH ×3 (21:43→21:59)
[2017-08-12 21:44] VITALS: PULSE 74; RESP 16; O2SAT 100
[2017-08-12] MEDS ORDERED: IRON18TA (21:48)
[2017-08-12] MEDS ORDERED: AMLO10TA2 PO (21:48)
[2017-08-12 21:49] LABS: PROTHROMBIN TIME - PATIENT 9.7 SEC (9.8-11.6)
[2017-08-12 21:51] VITALS: BP 132/65; PULSE 90; RESP 16; O2SAT 99
[2017-08-12 21:53] LABS: ALT (GPT) 33 U/L (10-53)
[2017-08-12 21:58] LABS: ALKALINE PHOSPHATASE 141 U/L (45-117); TOTAL BILIRUBIN ADULT 0.9 MG/DL (0.2-1.0); TOTAL PROTEIN 8.2 GM/DL (6.4-8.2); TROPONIN I LESS THAN 0.02 NG/ML (0.02-0.05)
--- NOTE | 2017-08-12 21:58 | RADRPT ---
EXAM DATE/TIME: 08/12/2017 21:29 [facility] COMPARISON: CHEST PA & LAT, January 22, 2017, 18:48. INDICATIONS : Chest pain MEDICAL HISTORY : Hypertension. Diabetes mellitus type II. Asthma SURGICAL HISTORY : None. ENCOUNTER: Initial ACUITY: 2 weeks PAIN SCORE: 2/10 LOCATION: Bilateral chest FINDINGS: PA and lateral views of the chest demonstrate the lungs to be symmetrically aerated without evidence of mass, infiltrate or effusion. There is mild peribronchial thickening. The cardiomediastinal contou rs are unremarkable. Osseous structures are intact. CONCLUSION: 1. Peribronchial thickening without focal infiltrate. Je Solis MD on August 12, 2017 at 21:55 Board Certified Radiologist. This report was verified electronically.
[2017-08-12] MEDS ORDERED: MORPHINE SULFATE 4 MG/ML INJ IV PUSH ONE (22:00)
[2017-08-12 22:08] LABS: ALBUMIN 3.6 GM/DL (3.4-5.0); AST (GOT) 22 U/L (15-37); BICARBONATE 27.2 MEQ/L (21.0-32.0); BLOOD UREA NITROGEN 14 MG/DL (7-18); CALCIUM 8.6 MG/DL (8.5-10.1); CHLORIDE 104 MEQ/L (98-107); CREATININE 1.05 MG/DL (0.50-1.00); GLOMERULAR FILTRATION RATE 68 ML/MIN (>89); GLUCOSE,RANDOM 184 MG/DL (74-106); MAGNESIUM 1.8 MG/DL (1.5-2.5); SODIUM (NA) 139 MEQ/L (136-145)
[2017-08-12] MEDS ORDERED: IOHEXOL 350 MG/ML 10 ML VIAL (for RAD DIAG) IVCONTRAST ONE (22:32)
--- NOTE | 2017-08-12 22:48 | RADRPT ---
EXAM DATE/TIME: 08/12/2017 22:25 [facility] COMPARISON: No previous studies available for comparison. INDICATIONS : Chest and back pain. IV CONTRAST: 75 cc Omnipaque 350 (iohexol) IV RADIATION DOSE: 11.38 CTDIvol (mGy) MEDICAL HISTORY : Hypertension. HIV. SURGICAL HISTORY : None. ENCOUNTER: Initial ACUITY: 1 day PAIN SCALE: 5/10 LOCATION: chest TECHNIQUE: Volumetric scanning of the chest was performed using a pulmonary embolism protocol MIP images were re constructed. Using automated exposure control and adjustment of the mA and/or kV according to patien t size, radiation dose was kept as low as reasonably achievable to obtain optimal diagnostic quality images. DICOM format image data is available electronically for review and comparison. Follow-up recommendations for detected pulmonary nodules are based at a minimum on nodule size and pa tient risk factors according to Fleischner Society Guidelines. FINDINGS: No filling defects to suggest pulmonary embolic disease. There is no pleural or pericardial effusion. Patchy airspace disease left lower lobe most characteristic of a mild bronchopneumonia. The no hilar , mediastinal or axillary adenopathy. CONCLUSION: 1. Negative for pulmonary embolus. Mild patchy airspace disease left lower lobe most characteristic o f a pneumonia. Je Solis MD on August 12, 2017 at 22:42 Board Certified Radiologist. This report was verified electronically.
[2017-08-12] MEDS ORDERED: AZIT250T3 PO (22:51)
[2017-08-12 22:55] VITALS: O2SAT 99
[2017-08-12] MEDS ORDERED: AZITHROMYCIN INJ 500 MG in SODIUM CHLOR 0.9% 250 ML INJ 250 ML IV ONE (23:00)
[2017-08-12] MEDS ORDERED: SODIUM CHLORIDE 0.9% FLUSH 10 ML FLUSH IV FLUSH PRN (23:00)
[2017-08-13 00:35] VITALS: BP 129/74; PULSE 81; RESP 16; TEMP 98.8; O2SAT 96
[2017-08-13 01:48] VITALS: BP 123/67; PULSE 75; RESP 18; TEMP 98.5; O2SAT 100
[2017-08-13 01:59] LABS: TROPONIN I LESS THAN 0.02 NG/ML (0.02-0.05)
[2017-08-13 04:06] VITALS: BP 132/81; PULSE 75; RESP 16; TEMP 98.2; O2SAT 100
[2017-08-13 07:30] VITALS: O2SAT 99
[2017-08-13 07:32] VITALS: PULSE 65
[2017-08-13] MEDS ORDERED: GLUCAGON 1 MG/ML VIAL OTHER PRN (07:45)
[2017-08-13] MEDS ORDERED: DEXTROSE 50% IN WATER 50 ML VIAL(D50) IV PUSH PRN (07:45)
[2017-08-13] MEDS ORDERED: RESP: ALBUTEROL 2.5 MG/IPRATROPIUM 0.5 MG NEB (PRN) INH (07:45)
[2017-08-13] MEDS: INSULIN ASPART SUPPLEMENTAL SCALE SQ SCH ×2 (08:00→12:00)
[2017-08-13] MEDS ORDERED: SODIUM CHLORIDE 0.9% FLUSH 10 ML FLUSH IV FLUSH SCH (09:00)
[2017-08-13 09:26] VITALS: BP 137/85; PULSE 68; RESP 16; TEMP 97.8; O2SAT 97
[2017-08-13] MEDS ORDERED: NON-FORMULARY DRUG (Emtricitabine-Tenofovir Alafenamide (Descovy) 1 TAB) PO SCH (10:30)
[2017-08-13] MEDS ORDERED: [UNRECOGNIZED DRUG - OTHER] PO SCH (10:30)
[2017-08-13] MEDS ORDERED: LOSARTAN 50 MG TAB PO SCH (10:30)
--- NOTE | 2017-08-13 10:45 | HHI.HP ---
HPI Primary Care Physician Mello Helton MD Chief Complaint Right-sided back pain History of Present Illness This is a 47-year-old female with history of asthma, hypertension, hyperlipidemia, diabetes, and also being diagnosed HIV 24 years ago that presents to ED with a complaint of having a right sided back discomfort for 1 week. Has been constantly there however is worse with certain movements and when she takes in a deep breath. She also states that she has had a nonproductive cough for the past week until yesterday at which time it turned to a yellow color productive cough. No fevers or chills. There are sick contacts at home. States her grandson has similar respiratory symptoms. She has had some mild shortness of breath with her symptoms. No nausea or diaphoresis. Cannot recall prior cardiac workup. States she is compliant with all medications. States her viral load is 90. Review of Systems General: Patient denies fevers, chills, and recent travel. HEENT: Patient denies headache, sore throat, difficulty swallowing. Cardiovascular: Has the back discomfort as mentioned above. Denies sensation of heart beating rapidly or irregularly. No syncope. Denies diaphoresis. Respiratory: Mild shortness of breath. She had a nonproductive cough for a week but yesterday she began having a yellowish color productive cough. Denies shortness of breath or inspirational chest discomfort. Denies wheezing or hemoptysis. GI: Patient denies nausea, vomiting, diarrhea, abdominal pain, bloody stools. Musculoskeletal: Right-sided back pain. Patient denies joint pain or edema. Denies calf pain or edema. Neurovascular: Patient denies numbness, tingling, weakness in extremities. Denies headache. Endocrine: Denies polyuria and polydipsia. Hematologic: Denies easy bruising. Skin: Denies rash or itching. Past Family Social History Allergies: Coded Allergies: Sulfa (Sulfonamide Antibiotics) (Unverified Allergy, Severe, HIVES, 08/12/17 ) Past Medical History Diagnosis HIV 24 years ago. Voices compliance with medications. Diabetes, hyperlipidemia, hypertension, and asthma. Denies CAD. Past Surgical History 2. Reported Medications Reported Meds & Active Scripts Active Azithromycin 250 Mg Tab 250 Mg PO DAILY 4 Days Nebulizer 1 Mis Mis 1 Ea .ROUTE DIRECTED Advair Diskus Inh (Fluticasone-Salmeterol Inh) 250-50 Mcg/Blist Aer 1 Puff INH BID Rinse mouth after use. Reported Amlodipine (Amlodipine Besylate) 10 Mg Tab 10 Mg PO DAILY Iron (Ferrous Sulfate) 18 Mg Tab Januvia (Sitagliptin Phosphate) 25 Mg Tab 25 Mg PO DAILY Losartan (Losartan Potassium) 50 Mg Tab 50 Mg PO DAILY Descovy (Emtricitabine-Tenofovir Alafenamide) 200-25 mg Tab 1 Tab PO DAILY Metformin (Metformin HCl) 500 Mg Tab 500 Mg PO DAILY With a meal Evotaz (Atazanavir-Cobicistat) 300-150 Mg Tab 1 Tab PO DAILY Atorvastatin (Atorvastatin Calcium) 40 Mg Tab 40 Mg PO HS Active Ordered Medications Current Medications Medications (Trade) Dose Ordered Sig/Mackenzie Route Start Time Stop Time Status Last Admin (NS Flush) 2 ml UNSCH PRN IV FLUSH 08/12/17 23:00 (NS Flush) 2 ml BID IV FLUSH 08/13/17 09:00 (Duoneb Neb) 1 ampule Q4HR NEB PRN INH 08/13/17 07:45 (NovoLOG SUPPLEMENTAL SCALE) 1 ACHS SLIDING SCALE SQ 08/13/17 08:00 (D50w (Vial) Inj) 50 ml UNSCH PRN IV PUSH 08/13/17 07:45 (Glucagon Inj) 1 mg UNSCH PRN OTHER 08/13/17 07:45 (Lipitor) 40 mg HS PO 08/13/17 21:00 UNV (Cozaar) 50 mg DAILY PO 08/13/17 10:30 UNV Non-Formulary Medication 1 tab DAILY PO 08/13/17 10:30 UNV Non-Formulary Medication 1 tab DAILY PO 08/13/17 10:30 UNV (Norvasc) 10 mg DAILY PO 08/13/17 10:45 UNV Family History Denies family history of CAD. Social History Non-smoker. Denies alcohol or illicit drug use. Physical Exam Vital Signs Vital Signs Date Time Temp Pulse Resp B/P (MAP) Pulse Ox O2 Delivery O2 Flow Rate FiO2 08/13/17 09:26 97.8 68 16 137/85 (102) 97 08/13/17 07:32 65 08/13/17 07:30 99 Nasal Cannula 1.50 08/13/17 04:06 98.2 75 16 132/81 (98) 100 08/13/17 01:48 98.5 75 18 123/67 (85) 100 08/13/17 00:35 98.8 81 16 129/74 (92) 96 08/12/17 22:55 99 Nasal Cannula 2.00 08/12/17 21:51 90 16 132/65 (87) 99 Nasal Cannula 2.00 08/12/17 21:44 100 Nasal Cannula 2.00 08/12/17 21:44 74 16 100 Nasal Cannula 2.00 08/12/17 21:43 78 16 146/71 (96) 100 Nasal Cannula 2.00 08/12/17 21:30 90 18 100 Nasal Cannula 2.00 08/12/17 21:28 90 18 184/114 (137) 98 Room Air 164/73 (103) 08/12/17 20:33 98.6 87 28 155/74 (101) 100 Physical Exam GENERAL: This is a well-nourished, well-developed patient, in no apparent distress. Patient speaks in clear complete sentences. Patient is pleasant. HEENT: Head is atraumatic and normocephalic. Neck is supple without lymphadenopathy and trachea is midline. No JVD or carotid bruits. CARDIOVASCULAR: Regular rate and rhythm without murmurs, gallops, or rubs. RESPIRATORY: Clear to auscultation. Breath sounds equal bilaterally. No wheezes , rales, or rhonchi. Chest wall is tender. The back pain that she presented for is also reproduced with movement and pressing on the right side of her back beneath the scapula. No use of accessory muscles. GASTROINTESTINAL: Abdomen is nontender, nondistended. Abdomen soft. No obvious pulsatile mass or bruit. No CVA tenderness. Strong femoral pulses bilaterally. Normal bowel sounds in all quadrants. MUSCULOSKELETAL: There is some discomfort when palpating right side of her back inferior of the right scapula. This also is reproduced with twisting of the torso as well as flexion extension. No spinous process point tenderness. Patient is moving upper and lower extremities freely. No calf tenderness or edema, no Homans sign. Strong pulses in upper and lower extremities. NEUROLOGICAL: Patient is alert and oriented. Cranial nerves 2-12 are grossly intact. No focal deficits and speech is clear. SKIN: No rash and turgor is normal. Laboratory Laboratory Tests Test 08/12/17 21:15 08/13/17 01:00 08/13/17 04:00 White Blood Count 7.2 Red Blood Count 4.62 Hemoglobin 13.0 Hematocrit 39.0 Mean Corpuscular Volume 84.5 Mean Corpuscular Hemoglobin 28.2 Mean Corpuscular Hemoglobin Concent 33.4 Red Cell Distribution Width 14.5 Platelet Count 262 Mean Platelet Volume 8.7 Neutrophils (%) (Auto) 45.2 Lymphocytes (%) (Auto) 42.9 Monocytes (%) (Auto) 6.9 Eosinophils (%) (Auto) 4.4 Basophils (%) (Auto) 0.6 Neutrophils # (Auto) 3.3 Lymphocytes # (Auto) 3.1 Monocytes # (Auto) 0.5 Eosinophils # (Auto) 0.3 Basophils # (Auto) 0.0 CBC Comment DIFF FINAL Differential Comment Prothrombin Time 9.7 Prothromb Time International Ratio 1.0 Activated Partial Thromboplast Time 26.7 Blood Urea Nitrogen 14 Creatinine 1.05 Random Glucose 184 Total Protein 8.2 Albumin 3.6 Calcium Level 8.6 Magnesium Level 1.8 Alkaline Phosphatase 141 Aspartate Amino Transf (AST/SGOT) 22 Alanine Aminotransferase (ALT/SGPT) 33 Total Bilirubin 0.9 Sodium Level 139 Potassium Level 4.1 Chloride Level 104 Carbon Dioxide Level 27.2 Anion Gap 8 Estimat Glomerular Filtration Rate 68 Total Creatine Kinase 293 245 Creatine Kinase MB 1.6 1.6 Creatine Kinase MB % 0.5 0.7 Troponin I LESS THAN 0.02 LESS THAN 0.02 LESS THAN 0.02 Lipase 194 Result Diagram: 08/12/17211408/12/172114 Imaging Last 48 hours Impressions Chest X-Ray 08/12/172107 Signed Impressions: Service Date/Time: August 21:29 - CONCLUSION: 1. Peribronchial thickening without focal infiltrate. Je Solis MD CT Angiography 08/12/172107 Signed Impressions: Service Date/Time: August 22:25 - CONCLUSION: 1. Negative for pulmonary embolus. Mild patchy airspace disease left lower lobe most characteristic of a pneumonia. Je Solis MD Course EKGs are sinus rhythm without significant ST segment depressions or elevations. Caprini VTE Risk Assessment Caprini VTE Risk Assessment: No/Low Risk (score <= 1) Caprini Risk Assessment Model Point Value = 1 Point Value = 2 Point Value = 3 Point Value = 5 Age 41-60 Minor surgery BMI > 25 kg/m2 Swollen legs Varicose veins or History of unexplained or recurrent spontaneous Oral contraceptives or hormone replacement Sepsis (< 1 month) Serious lung disease, including pneumonia (< 1 month) Abnormal pulmonary function Acute myocardial infarction Congestive heart failure (< 1 month) History of inflammatory bowel disease Medical patient at bed rest Age 61-74 Arthroscopic surgery Major open surgery (> 45 min) Laparoscopic surgery (> 45 min) Malignancy Confined to bed (> 72 hours) Immobilizing plaster cast Central venous access Age >= 75 History of VTE Family history of VTE Factor V Leiden Prothrombin [id number] Lupus anticoagulant Anticardiolipin antibodies Elevated serum homocysteine Heparin-induced thrombocytopenia Other congenital or acquired thrombophilia Stroke (< 1 month) Elective arthroplasty Hip, pelvis, or leg fracture Acute spinal cord injury (< 1 month) Prophylaxis Regimen Total Risk Factor Score Risk Level Prophylaxis Regimen 0-1 Low Early ambulation 2 Moderate Order ONE of the following: *Sequential Compression Device (SCD) *Heparin 5000 units SQ BID 3-4 Higher Order ONE of the following medications: *Heparin 5000 units SQ TID *Enoxaparin/Lovenox 40 mg SQ daily (WT < 150 kg, CrCl > 30 mL/min) *Enoxaparin/Lovenox 30 mg SQ daily (WT < 150 kg, CrCl > 10-29 mL/min) *Enoxaparin/Lovenox 30 mg SQ BID (WT < 150 kg, CrCl > 30 mL/min) AND/OR *Sequential Compression Device (SCD) 5 or more Highest Order ONE of the following medications: *Heparin 5000 units SQ TID (Preferred with Epidurals) *Enoxaparin/Lovenox 40 mg SQ daily (WT < 150 kg, CrCl > 30 mL/min) *Enoxaparin/Lovenox 30 mg SQ daily (WT < 150 kg, CrCl > 10-29 mL/min) *Enoxaparin/Lovenox 30 mg SQ BID (WT < 150 kg, CrCl > 30 mL/min) AND *Sequential Compression Device (SCD) Assessment and Plan Assessment and Plan * Pneumonia: Patient presents to ED for a right-sided back pain. A CTA obtained in the ED ruled out PE but revealed a left lower lobe pneumonia. She has been coughing for a week. Patient will be treated for pneumonia. She will be given antibiotics. Have DuoNeb's as needed. Resume medication at discharge. Patient to be evaluated by Dr. Christian of cardiology in the chest pain center to determine further plan. Patient will need to follow-up with PCP after discharge and return to ED for interval issues. * HIV: Resume medications. * Diabetes: Patient will be on sliding scale insulin coverage while in chest pain center. Follow diabetic diet. Resume medication at discharge however her metformin will need to be held for 2 days as she had a CT with IV contrast. * Hyperlipidemia: Resume medication. * Hypertension: Continue medication. Patient is stable at this time. She is agreeable to this plan. Russell Lozada Aug 13, 2017 10:45
[2017-08-13] MEDS ORDERED: SODIUM CHLORID 0.9% 500 ML INJ 500 ML IV SCH (14:30)
--- NOTE | 2017-08-13 14:45 | HHI.DCPOC ---
Discharge Care Plan Diagnosis: (1) Pneumonia (2) HTN (hypertension) (3) Hyperlipidemia (4) Diabetes (5) HIV disease Goals to Promote Your Health * To prevent worsening of your condition and complications * To maintain your health at the optimal level Directions to Meet Your Goals Take your medications as prescribed Follow your dietary instruction Follow activity as directed Keep your appointments as scheduled Take your immunizations and boosters as scheduled If your symptoms worsen call your PCP, if no PCP go to Urgent Care Center or Emergency Room Smoking is Dangerous to Your Health. Avoid second hand smoke Call the 24-hour hour crisis hotline for domestic abuse at Russell Lozada Aug 13, 2017 14:45
--- NOTE | 2017-08-13 14:59 | PD.CARD.PN ---
Subjective Subjective Remarks Very pleasant but morbidly obese lady who was admitted to the chest pain center and evaluated and found to have a pneumonic process in her lungs. She has been caring for her grandchild at home who has been sick with an upper respiratory infection which is probably prove to be the source. Her symptoms are consistent with a pneumonic process and further cardiovascular evaluation would be inappropriate at this time. She will therefore be discharged on antibiotics with instructions regarding follow-up within the week at her primary care physicians to be sure she is resolving well. Objective Medications Current Medications Medications (Trade) Dose Ordered Sig/Mackenzie Route Start Time Stop Time Status Last Admin (NS Flush) 2 ml UNSCH PRN IV FLUSH 08/12/17 23:00 (NS Flush) 2 ml BID IV FLUSH 08/13/17 09:00 08/13/17 12:11 (Duoneb Neb) 1 ampule Q4HR NEB PRN INH 08/13/17 07:45 (NovoLOG SUPPLEMENTAL SCALE) 1 ACHS SLIDING SCALE SQ 08/13/17 08:00 (D50w (Vial) Inj) 50 ml UNSCH PRN IV PUSH 08/13/17 07:45 (Glucagon Inj) 1 mg UNSCH PRN OTHER 08/13/17 07:45 (Lipitor) 40 mg HS PO 08/13/17 21:00 (Cozaar) 50 mg DAILY PO 08/13/17 10:30 08/13/17 12:10 Non-Formulary Medication 1 tab DAILY PO 08/13/17 10:30 UNV Non-Formulary Medication 1 tab DAILY PO 08/13/17 10:30 UNV (Norvasc) 10 mg DAILY PO 08/13/17 10:45 08/13/17 12:10 Sodium Chloride 500 ml @ 80 mls/hr NOW IV 08/13/17 14:30 08/13/17 20:44 Vital Signs / I&O Vital Signs Date Time Temp Pulse Resp B/P (MAP) Pulse Ox O2 Delivery O2 Flow Rate FiO2 08/13/17 09:26 97.8 68 16 137/85 (102) 97 08/13/17 07:32 65 08/13/17 07:30 99 Nasal Cannula 1.50 08/13/17 04:06 98.2 75 16 132/81 (98) 100 08/13/17 01:48 98.5 75 18 123/67 (85) 100 08/13/17 00:35 98.8 81 16 129/74 (92) 96 08/12/17 22:55 99 Nasal Cannula 2.00 08/12/17 21:51 90 16 132/65 (87) 99 Nasal Cannula 2.00 08/12/17 21:44 100 Nasal Cannula 2.00 08/12/17 21:44 74 16 100 Nasal Cannula 2.00 08/12/17 21:43 78 16 146/71 (96) 100 Nasal Cannula 2.00 08/12/17 21:30 90 18 100 Nasal Cannula 2.00 08/12/17 21:28 90 18 184/114 (137) 98 Room Air 164/73 (103) 08/12/17 20:33 98.6 87 28 155/74 (101) 100 I/O 08/12/17 08/12/17 08/12/17 08/13/17 08/13/17 08/13/17 07:00 15:00 23:00 07:00 15:00 23:00 # Voids 2 Physical Exam Very obese lady who is anxious to be discharged Chest reveals diminished breath sounds but rales cannot be clearly distinguished. Sounds are diminished significantly because of her rather massive obesity. Cardiovascular reveals a regular sinus rhythm with no significant gallop rub or murmur. Laboratory Laboratory Tests Test 08/12/17 21:15 08/13/17 01:00 08/13/17 04:00 White Blood Count 7.2 TH/MM3 Red Blood Count 4.62 MIL/MM3 Hemoglobin 13.0 GM/DL Hematocrit 39.0 % Mean Corpuscular Volume 84.5 FL Mean Corpuscular Hemoglobin 28.2 PG Mean Corpuscular Hemoglobin Concent 33.4 % Red Cell Distribution Width 14.5 % Platelet Count 262 TH/MM3 Mean Platelet Volume 8.7 FL Neutrophils (%) (Auto) 45.2 % Lymphocytes (%) (Auto) 42.9 % Monocytes (%) (Auto) 6.9 % Eosinophils (%) (Auto) 4.4 % Basophils (%) (Auto) 0.6 % Neutrophils # (Auto) 3.3 TH/MM3 Lymphocytes # (Auto) 3.1 TH/MM3 Monocytes # (Auto) 0.5 TH/MM3 Eosinophils # (Auto) 0.3 TH/MM3 Basophils # (Auto) 0.0 TH/MM3 CBC Comment DIFF FINAL Differential Comment Prothrombin Time 9.7 SEC Prothromb Time International Ratio 1.0 RATIO Activated Partial Thromboplast Time 26.7 SEC Blood Urea Nitrogen 14 MG/DL Creatinine 1.05 MG/DL Random Glucose 184 MG/DL Total Protein 8.2 GM/DL Albumin 3.6 GM/DL Calcium Level 8.6 MG/DL Magnesium Level 1.8 MG/DL Alkaline Phosphatase 141 U/L Aspartate Amino Transf (AST/SGOT) 22 U/L Alanine Aminotransferase (ALT/SGPT) 33 U/L Total Bilirubin 0.9 MG/DL Sodium Level 139 MEQ/L Potassium Level 4.1 MEQ/L Chloride Level 104 MEQ/L Carbon Dioxide Level 27.2 MEQ/L Anion Gap 8 MEQ/L Estimat Glomerular Filtration Rate 68 ML/MIN Total Creatine Kinase 293 U/L 245 U/L Creatine Kinase MB 1.6 NG/ML 1.6 NG/ML Creatine Kinase MB % 0.5 % 0.7 % Troponin I LESS THAN 0.02 NG/ML LESS THAN 0.02 NG/ML LESS THAN 0.02 NG/ML Lipase 194 U/L Imaging Last 24 hours Impressions Chest X-Ray 08/12/172107 Signed Impressions: Service Date/Time: August 21:29 - CONCLUSION: 1. Peribronchial thickening without focal infiltrate. Je Solis MD CT Angiography 08/12/172107 Signed Impressions: Service Date/Time: August 22:25 - CONCLUSION: 1. Negative for pulmonary embolus. Mild patchy airspace disease left lower lobe most characteristic of a pneumonia. Je Solis MD Assessment and Plan Assessment and Plan Initiate antibiotics and discharge for outpatient follow-up with her primary care physician Discussed Condition With Discussed this with the advanced practitioner and the patient Matti Christian MD Aug 13, 2017 14:59
--- NOTE | 2017-08-13 15:08 | EKG ---
Date Performed: 08/13/2017 Time Performed: 04:23:53 PTAGE: 47 years EKG: Sinus rhythm NORMAL ECG No change PREVIOUS TRACING : 08/13/2017 01.44 DOCTOR: Matti Christian Interpretating Date/Time 08/13/2017 15:07:16
--- NOTE | 2017-08-13 15:09 | EKG ---
Date Performed: 08/13/2017 Time Performed: 01:44:27 PTAGE: 47 years EKG: Sinus rhythm NORMAL ECG No change PREVIOUS TRACING : 01/21/2017 17.39 DOCTOR: Matti Christian Interpretating Date/Time 08/13/2017 15:08:49
--- NOTE | 2017-08-13 15:11 | EKG ---
Date Performed: 08/12/2017 Time Performed: 20:42:44 PTAGE: 47 years EKG: Sinus rhythm NORMAL ECG INTERPRETATION BASED ON A DEFAULT AGE OF 39 YEARS No change PREVIOUS TRACING : 01/21/2017 17.39 DOCTOR: Matti Christian Interpretating Date/Time 08/13/2017 15:09:55
[2017-08-13] MEDS ORDERED: ATORVASTATIN 40 MG TAB PO SCH (21:00)
== END 2017-08-13 16:11 | disposition home or self-care (01) ==
LOC: NEPC 19:29 → NEDA 22:55 → NEPGCP 23:22
PROVIDERS: ADMIT Internal Medicine Interventional Cardiology; ATTEND Internal Medicine Interventional Cardiology
DX: J18.9 Pneumonia, unspecified organism (principal); I10 Essential (primary) hypertension; E78.00 Pure hypercholesterolemia, unspecified; E11.42 Type 2 diabetes mellitus with diabetic polyneuropathy; J45.909 Unspecified asthma, uncomplicated; B20 Human immunodeficiency virus [HIV] disease; E66.01 Morbid (severe) obesity due to excess calories; Z79.899 Other long term (current) drug therapy; Z79.84 Long term (current) use of oral hypoglycemic drugs
CPT/HCPCS: 71046; 71275; 80053; 82550; 82552; 82948; 83690; 83735; 84484; 84703; 85025; 85610; 85730; 93005; 96365; 96375; 99285; G0378; J0456; J2270; J7050; Q9967